=== PATIENT | male | born 1940 | race Caucasian/White ===

== ENCOUNTER 2016-04-24 04:31 | Inpatient (IN) | payer OTHER, BC ==
[~2016-04-24] VITALS: Ht 167.6 cm; Wt 82.3 kg
[~2016-04-24 04:31] MED LIST: ALEN70TA2 PO; CALCTAB20 PO; CHOL100040 PO; LPRI; MULT-506 PO; VITA1TAB4 PO
--- NOTE | 2016-04-24 04:58 | EMERGENCY ROOM VISIT NOTE ---
History Report prepared by Beryl: Pastor Holden Under the Supervision of: Dr. Destini Hernandez M.D. 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 did take a couple asprin tonight History of Present Illness The patient is a 75 year old male who presents to the Emergency Room with complaints of persistent left shoulder pain since last night. The pain radiates up his neck and down the left arm. The pain is rated 8/10 in severity. The patient has not been able to sleep secondary to pain. He denies chest pain, shortness of breath, or back pain. The patient had a total of 4 Aspirin. His believes that the patient might have an infection of the skin over his legs. The patient has a history of prostate cancer and is s/p prostatectomy. He is not a smoker and is not on blood thinners. The patient denies any cardiac history. He denies any personal or family history of blood clots. Source of History: patient Onset: last night Position: shoulder (left) Symptom Intensity: 8/10 Timing: other (persistent) Associated Symptoms: No SOB, No back pain, No chest pain Review of Systems See HPI for pertinent positives & negatives. A total of 10 systems reviewed and were otherwise negative. Past Medical & Surgical Medical Problems: (1) Leukocytosis (2) Prostate cancer (3) Septicemia due to group B Streptococcus Surgical Problems: (1) History of prostatectomy Family History FHx: diabetes FHx: heart disease Social History Smoking Status: Never Smoker Alcohol Use: occasionally Marital Status: Housing Status: lives with significant other Occupation Status: retired Current/Historical Medications Scheduled Alendronate Sodium (Fosamax), 70 MG PO WK Calcium Carbonate-Vitamin D (Calcium 600 + D), 1 TABS PO DAILY Cholecalciferol (Vitamin D-1000), 1,000 UNIT PO DAILY Enzalutamide (Xtandi), 160 MG PO DAILY Leuprolide Acetate (Lupron Depot), Q 3 MONTHS Multivitamin (Multivitamin), 1 TAB PO DAILY Vitamin E (Vitamin E), 400 MG PO DAILY Allergies Coded Allergies: No Known Allergies (Unverified , 04/24/16) Physical Exam Vital Signs Date Time Temp Pulse Resp B/P Pulse Ox O2 Delivery O2 Flow Rate FiO2 04/24/16 07:51 84 04/24/16 07:18 37.0 97 18 117/71 97 Room Air 04/24/16 06:59 96 16 121/73 98 Room Air 04/24/16 06:33 97 16 121/67 98 Room Air 04/24/16 04:50 105 04/24/16 04:34 36.8 114 18 114/71 94 Room Air Physical Exam Vital signs reviewed. General: Well-appearing male, in no significant distress. Warm to touch. HEENT: No scleral icterus, PERRLA, neck supple. Atraumatic. Cardiovascular: Tachycardic, regular rhythm, no extra sounds. Pulmonary: Clear to auscultation bilaterally, normal work of breathing. Abdomen: Soft, nontender, nondistended, positive bowel sounds. Musculoskeletal: Right greater than left proximal lower extremity warmth and erythema. Right lower extremity erythema progresses past the knee and around to the posterior aspect of the leg, no open lesions or drainage. Neurologic: Patient awake alert and oriented x 3, full strength in all 4 extremities. Cranial nerves 2 through 12 grossly intact. Skin: Warm, dry, no rash Medical Decision & Procedures ER Provider Diagnostic Interpretation: X-ray results as stated below per interpretation by me and the radiologist: CHEST ONE VIEW PORTABLE HISTORY: Atypical chest pain COMPARISON: Chest 03/25/2014. FINDINGS: Elevation of the left hemidiaphragm which is new from the prior studies. Associated left basilar linear density consistent with subsegmental atelectasis. The right lung is clear. The heart is normal in size. No pleural effusions. No pneumothorax. IMPRESSION: Interval development of an elevated left hemidiaphragm with left basilar subsegmental atelectasis. Electronically signed by: Óscar Nix M.D. 04/24/2016 7:44 AM Dictated Date/Time: 04/24/2016 7:43 AM Laboratory Results Test 04/24/16 04:45 04/24/16 05:25 04/24/16 06:01 Prothrombin Time 11.7 SECONDS (9.0-12.0) Prothromb Time International Ratio 1.1 (0.9-1.1) Activated Partial Thromboplast Time 29.5 SECONDS (21.0-31.0) Partial Thromboplastin Ratio 1.1 Total Bilirubin 1.1 mg/dl (0.2-1) Direct Bilirubin 0.2 mg/dl (0-0.2) Aspartate Amino Transf (AST/SGOT) 12 U/L (15-37) Alanine Aminotransferase (ALT/SGPT) 17 U/L (12-78) Alkaline Phosphatase 89 U/L (45-117) Total Protein 6.7 gm/dl (6.4-8.2) Albumin 3.5 gm/dl (3.4-5.0) Bedside Troponin I 0.000 ng/ml (0-0.045) Bedside Lactic Acid Venous 2.68 mmol/L (0.90-1.70) Laboratory results per my review. Medications Administered Medications (Trade) Dose Ordered Sig/Rosita Route Start Time Stop Time Status Last Admin Dose Admin Sodium Chloride 500 ml @ 999 mls/hr Q31M STAT IV 04/24/16 05:34 04/24/16 06:04 DC 04/24/16 05:34 999 MLS/HR Sodium Chloride (Nss 1000ml) 1,000 ml @ 200 mls/hr Q5H STAT IV 04/24/16 05:34 04/24/16 10:33 DC 04/24/16 06:38 200 MLS/HR Piperacillin Sod/ Tazobactam Sod 4.5 gm 4.5 gm NOW STAT IV 04/24/16 05:34 04/24/16 05:35 DC 04/24/16 06:39 4.5 GM Vancomycin HCl 2100 mg/Sodium Chloride 542 ml @ 200 mls/hr NOW STAT IV 04/24/16 06:24 04/24/16 09:06 DC 04/24/16 06:59 200 MLS/HR Sodium Chloride (Nss 1000ml) 1,000 ml @ 100 mls/hr Q10H IV 04/24/16 08:00 04/25/16 14:25 DC 04/25/16 12:38 100 MLS/HR Magnesium Sulfate (Magnesium Sulfate) 1 gm STK-MED ONCE .ROUTE 04/24/16 08:11 04/24/16 08:13 DC 04/24/16 08:17 1 GM ECG Indication: chest pain Rate (beats per minute): 107 Rhythm: sinus tachycardia Findings: no acute ischemic change, left axis deviation, no ectopy ED Course 0452: Past medical records reviewed. The patient was evaluated in room B8. A complete history and physical examination was performed. 0500: Nitrostat 0.4 mg SL. 0534: Zosyn 4.5 gm IV, NSS 1000 ml @ 200 mls/hr, NSS 500 ml @ 999 mls/hr. 0624: Vancomycin HCl 2100 mg / NSS 542 ml @ 200 mks/hr. 0700: Dr. Rader, [facility] Hospitalist, is aware of the case. Medical Decision Differential diagnosis: Influenza, other viral illness, pneumonia, urinary tract infection, metabolic abnormality, medication effect, cellulitis, meningitis, intra-abdominal source. This patient was evaluated and appeared to be in some discomfort. IV access was obtained and laboratory work was drawn. Patient was hydrated with normal saline solution. Patient is noted to be tachycardic and has an elevated lactate. White blood cell count is 20,000. Patient's cardiac enzymes are negative. EKG reveals a sinus tachycardia without evidence of acute ischemia. Chest x-ray reveals interval development of an elevated left hemidiaphragm with left basilar subsegmental atelectasis. Patient's physical exam is significant for bilateral lower extremity cellulitis. Blood cultures were sent and the patient was medicated with IV Zosyn and IV vancomycin. The patient's case was discussed with the hospitalist service will evaluate the patient for further management. He expresses understanding and agrees. Impression Primary Impression: SIRS (systemic inflammatory response syndrome) Additional Impression: Cellulitis of both lower extremities Scribe Attestation The scribe's documentation has been prepared under my direction and personally reviewed by me in its entirety. I confirm that the note above accurately reflects all work, treatment, procedures, and medical decision making performed by me. Departure Information Dispostion Being Evaluated By Hospitalist Referrals RV. Castaneda MD (PCP) Patient Instructions My [facility] Problem Qualifiers
[2016-04-24] MEDS ORDERED: NITROGLYCERIN 0.4 MG SL PER TAB CHARGE SL PRN (05:00)
[2016-04-24 05:01] LABS: HEMATOCRIT 45.9 % (42-52); MEAN CELL VOLUME 85.8 fL (80-100); MEAN CORPUSCULAR HEMOGLOBIN 30.8 pg (25-34); MEAN CORPUSCULAR HGB CONC 35.9 g/dl (32-36); MEAN PLATELET VOLUME 10.1 fL (7.4-10.4); PLATELET COUNT 173 K/uL (130-400); RED BLOOD COUNT 5.35 M/uL (4.7-6.1); WHITE BLOOD COUNT 20.05 K/uL (4.8-10.8)
[2016-04-24 05:12] LABS: BUN/CREATININE RATIO 15.3 (10-20); CALCIUM 8.2 mg/dl (8.5-10.1); CREATININE 1.1 mg/dl (0.60-1.40); INR 1.1 (0.9-1.1); MAGNESIUM 1.6 mg/dl (1.8-2.4); PARTIAL THROMBOPLASTIN RATIO 1.1; POTASSIUM 3.7 mmol/L (3.5-5.1); PROTHROMBIN TIME (PATIENT) 11.7 SECONDS (9.0-12.0)
[2016-04-24 05:17] LABS: CKMB/CK RATIO 1.8 (0-3.0)
[2016-04-24 05:27] LABS: BASO % 0.1 %; BASO ABS # 0.02 K/uL (0-0.2); COMPLETE YES; IG% 0.2 %; LYMPH % 4.9 %; LYMPH ABS # 0.99 K/uL (1.2-3.4); MONO % 2.2 %; NEUT % 92.6 %
[2016-04-24] MEDS ORDERED: PIPERACILLIN/TAZOBACTAM 4.5 GM/100ML D5W IV STA (05:34)
[2016-04-24] MEDS ORDERED: SODIUM CHLORIDE 0.9% 1000ML 1,000 ML IV STA (05:34)
[2016-04-24] MEDS ORDERED: VANCOMYCIN INJ 2,100 MG in SODIUM CHLORIDE 0.9% 250ML 250 ML IV STA (05:34)
[2016-04-24] MEDS ORDERED: SODIUM CHLORIDE 0.9% 500ML 500 ML IV STA (05:34)
[2016-04-24] MEDS ORDERED: VANCOMYCIN INJ 2,100 MG in SODIUM CHLORIDE 0.9% 500ML 500 ML IV STA (06:24)
[2016-04-24] MEDS ORDERED: CALC-20 PO (06:36)
[2016-04-24] MEDS ORDERED: ENZA1CAP PO (06:37)
--- NOTE | 2016-04-24 07:45 | DIAGNOSTIC IMAGING REPORT ---
CHEST ONE VIEW PORTABLE HISTORY: Atypical chest pain COMPARISON: Chest 03/25/2014. FINDINGS: Elevation of the left hemidiaphragm which is new from the prior studies. Associated left basilar linear density consistent with subsegmental atelectasis. The right lung is clear. The heart is normal in size. No pleural effusions. No pneumothorax. IMPRESSION: Interval development of an elevated left hemidiaphragm with left basilar subsegmental atelectasis. Electronically signed by: Óscar Nix M.D. 04/24/2016 7:44 AM Dictated Date/Time: 04/24/2016 7:43 AM
[2016-04-24] MEDS ORDERED: MAGNESIUM SULFATE 1GM / D5W 1 GM in PREMIXED IN D5W 100 ML IV STA (07:46)
[2016-04-24] MEDS ORDERED: MAGNESIUM SULFATE 1GM / D5W 1 GM BAG ONE (08:11)
--- NOTE | 2016-04-24 08:12 | History and Physical ---
History & Physical Date & Time of Service: Apr 24, 2016 at 08:08 Chief Complaint: Pain In Shoulder,Chest,Neck Primary Care Physician: RV. Castaneda MD History of Present Illness Source: patient, spouse Mr. Latif is a 75 y/o male with PMHx of Prostate CA S/P Prostatectomy and Lymph Node Removal and Possible Mets and Chronic Lymphedema who presents to the ED complaining of L shoulder pain with radiation to neck and down L arm that started last night. 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 Yesterday he felt fatigued and took a nap on the cough and believes he possible slept funny. However, when he woke up he did not have the L shoulder pain but approx. 1 hour it was a sudden onset of constant aching pain that radiated up to the neck, down the arm, and into the back but did not go into the chest. He initially rated this pain a 8/10 but has improved to 6/10. He reports taking four ASA 81 mg BRICK LAYER for concern of a cardiac event. This pain does not produce numbness/tingling and is reproducible with palpation of the superior aspect of the L shoulder. He does report associated chills and nausea last night. As well, he has developed bilateral lower extremity edema and erythema. He has had 3 episodes in the past but it has been awhile per patient report. He does have lymphedema due to lymph node dissection but reports normally good control with stockings, machine, and massage. He denies pain in the legs or numbness/tingling. He denies CP, SOB, vomiting, abdominal pain, dysuria, constipation/diarrhea. In the ED, Labs significant for WBC of 20.05 and glucose of 201. Lactic acid was 2.68. Cardiac enzymes negative. CXR without evidence of consolidation or failure. Vancomycin and Zosyn were initiated after BCx obtained. He is afebrile. He will be admitted to Med/Surg for SIRS and lower extremity cellulitis. Past Medical/Surgical History Medical Problems: (1) Prostate cancer Status: Chronic Surgical Problems: (1) History of prostatectomy Status: Resolved Family History FHx: diabetes FHx: heart disease Social History Smoking Status: Never Smoker Smokeless Tobacco Use: No Alcohol Use: socially Drug Use: none Marital Status: Occupational Status: retired Immunizations History of Influenza Vaccine: Yes History of Tetanus Vaccine?: Yes History of Pneumococcal: Yes History of Hepatitis B Vaccine: Unknown Allergies Coded Allergies: No Known Allergies (Unverified , 04/24/16) Home Medications Scheduled Alendronate Sodium (Fosamax), 70 MG PO WK Calcium Carbonate-Vitamin D (Calcium 600 + D), 1 TABS PO DAILY Cholecalciferol (Vitamin D-1000), 1,000 UNIT PO DAILY Enzalutamide (Xtandi), 160 MG PO DAILY Leuprolide Acetate (Lupron Depot), Q 3 MONTHS Multivitamin (Multivitamin), 1 TAB PO DAILY Vitamin E (Vitamin E), 400 MG PO DAILY Review of Systems Constitutional: + chills, + fatigue, No fever Eyes: No worsening of vision ENT: No nasal symptoms, No sore throat, No trouble swallowing Respiratory: No cough, No shortness of breath Cardiovascular: No chest pain, No palpitations Abdomen: + nausea, No constipation, No diarrhea, No pain, No vomiting Musculoskeletal: + joint pain (L Shoulder with radiation to neck and back), + swelling (lower extremities bilat (chronic)), No calf pain Genitourinary - Male: No dysuria Neurologic: No numbness/tingling, No weakness Hematologic / Lymphatic: No abnormal bleeding/bruising, No clotting problems Integumentary: + problem reported (lower extremity redness bilat) Physical Exam Vital Signs Date Time Temp Pulse Resp B/P Pulse Ox O2 Delivery O2 Flow Rate FiO2 04/24/16 07:51 84 04/24/16 07:18 37.0 97 18 117/71 97 Room Air 04/24/16 06:59 96 16 121/73 98 Room Air 04/24/16 06:33 97 16 121/67 98 Room Air 04/24/16 04:50 105 04/24/16 04:34 36.8 114 18 114/71 94 Room Air General Appearance: WD/WN, no apparent distress Head: normocephalic, atraumatic Eyes: sclerae normal ENT: hearing grossly normal Neck: supple, no JVD, trachea midline Respiratory/Chest: lungs clear, normal breath sounds, no respiratory distress, no accessory muscle use Cardiovascular: regular rate, rhythm, no gallop, no murmur Abdomen/GI: normal bowel sounds, non tender, soft Back: normal inspection, no CVA tenderness Extremities/Musculoskelatal: no pedal edema, + swelling (trace to 1+ pitting edema of lower extremities bilat), + pertinent finding (bilateral thigh erythema that extends to the upper aspect of calves bilat; spares the knee) Neurologic/Psych: no motor/sensory deficits, alert, oriented x 3 Skin: warm/dry, + pertinent finding (no open wounds) Diagnostics Laboratory Results Results Past 24 Hours Test 04/24/16 04:45 04/24/16 05:25 04/24/16 06:01 04/24/16 07:46 Range/Units White Blood Count 20.05 4.8-10.8 K/uL Red Blood Count 5.35 4.7-6.1 M/uL Hemoglobin 16.5 14.0-18.0 g/dL Hematocrit 45.9 42-52 % Mean Corpuscular Volume 85.8 80-100 fL Mean Corpuscular Hemoglobin 30.8 25-34 pg Mean Corpuscular Hemoglobin Concent 35.9 32-36 g/dl Platelet Count 173 130-400 K/uL Mean Platelet Volume 10.1 7.4-10.4 fL Neutrophils (%) (Auto) 92.6 % Lymphocytes (%) (Auto) 4.9 % Monocytes (%) (Auto) 2.2 % Eosinophils (%) (Auto) 0.0 % Basophils (%) (Auto) 0.1 % Neutrophils # (Auto) 18.56 1.4-6.5 K/uL Lymphocytes # (Auto) 0.99 1.2-3.4 K/uL Monocytes # (Auto) 0.44 0.11-0.59 K/uL Eosinophils # (Auto) 0.00 0-0.5 K/uL Basophils # (Auto) 0.02 0-0.2 K/uL RDW Standard Deviation 43.9 36.4-46.3 fL RDW Coefficient of Variation 14.1 11.5-14.5 % Immature Granulocyte % (Auto) 0.2 % Immature Granulocyte # (Auto) 0.04 0.00-0.02 K/uL Prothrombin Time 11.7 9.0-12.0 SECONDS Prothromb Time International Ratio 1.1 0.9-1.1 Activated Partial Thromboplast Time 29.5 21.0-31.0 SECONDS Partial Thromboplastin Ratio 1.1 Sodium Level 139 136-145 mmol/L Potassium Level 3.7 3.5-5.1 mmol/L Chloride Level 103 98-107 mmol/L Carbon Dioxide Level 22 21-32 mmol/L Anion Gap 14.0 3-11 mmol/L Blood Urea Nitrogen 17 7-18 mg/dl Creatinine 1.10 0.60-1.40 mg/dl Est Creatinine Clear Calc Drug Dose 57.5 ml/min Estimated GFR () 75.2 Estimated GFR (Non- 64.9 BUN/Creatinine Ratio 15.3 10-20 Random Glucose 201 70-99 mg/dl Calcium Level 8.2 8.5-10.1 mg/dl Magnesium Level 1.6 1.8-2.4 mg/dl Total Bilirubin 1.1 0.2-1 mg/dl Direct Bilirubin 0.2 0-0.2 mg/dl Aspartate Amino Transf (AST/SGOT) 12 15-37 U/L Alanine Aminotransferase (ALT/SGPT) 17 12-78 U/L Alkaline Phosphatase 89 45-117 U/L Total Creatine Kinase 34 39-308 U/L Creatine Kinase MB 0.6 0.5-3.6 ng/ml Creatine Kinase MB Ratio 1.8 0-3.0 Total Protein 6.7 6.4-8.2 gm/dl Albumin 3.5 3.4-5.0 gm/dl Bedside Troponin I 0.000 0-0.045 ng/ml Bedside Lactic Acid Venous 2.68 0.90-1.70 mmol/L Microbiology Results 04/24/16 Blood Culture, Received Pending 04/24/16 Blood Culture, Received Pending Diagnostic Radiology CHEST ONE VIEW PORTABLE HISTORY: Atypical chest pain COMPARISON: Chest 03/25/2014. FINDINGS: Elevation of the left hemidiaphragm which is new from the prior studies. Associated left basilar linear density consistent with subsegmental atelectasis. The right lung is clear. The heart is normal in size. No pleural effusions. No pneumothorax. IMPRESSION: Interval development of an elevated left hemidiaphragm with left basilar subsegmental atelectasis. EKG Sinus tachycardia Left axis deviation Abnormal ECG When compared with ECG of 25-MAR-2014 10:30, Vent. rate has increased BY 37 BPM Impression Assessment and Plan Mr. Latif is a 75 y/o male with PMHx of Prostate CA S/P Prostatectomy and Lymph Node Removal and Possible Mets and Chronic Lymphedema who presents to the ED complaining of L shoulder pain with radiation to neck and down L arm that started last night. In the ED, Labs significant for WBC of 20.05 and glucose of 201. Lactic acid was 2.68. Cardiac enzymes negative. CXR without evidence of consolidation or failure. Vancomycin and Zosyn were initiated after BCx obtained. He is afebrile. He will be admitted to Med/Surg for SIRS and lower extremity cellulitis. SIRS with Bilateral Lower Extremity Cellulitis Superimposed on Chronic Lymphedema: - U/S B/L lower extremities and groin - R/O DVT - BCx - pending - NSS at 100 mL/hr - Vancomycin and Zosyn per pharmacy dosing L Shoulder Pain: Likely Musculoskeletal: - Serial cardiac enzymes - R/O atypical presentation - unlikely in setting of reproducible pain - Toradol 15 mg IV Q6H PRN - Lidocaine patch Hypomagnesemia: - Replete with Mag Sulf 1 g x 1 dose - Trend Mag and replete as necessary Hyperglycemia: No H/O Diabetes; Pos FMHx T2DM in Father: - HbA1c and BSG AC and HS - monitor in setting of FMHx and current infection Prostate CA S/P Prostatectomy and Lymph Node Dissection with Possible Mets: - Xtandi 160 mg daily HS - non-formulary and patient may use own medication DVT Prophylaxis: - Heparin 5000 units SC Q12H Code Status: - FULL RESUSCITATION Disposition: - Lives at home and independent Level of Care Med/Surg Advanced Directives Existing Advance Directive: Yes Resuscitation Status FULL RESUSCITATION VTE Prophylaxis VTE Risk Assessment Done? Y/N: Yes Risk Level: Moderate Given or contraindicated: Unfractionated heparin SQ Reviewed: Pt Seen/Exam by Me, RN Notes, HO Notes, Prior Records, Labs, RAD, EKG History I agree with MIKALA Murillo&P with some modifications as below A 75 y/o male with PMHx of Prostate CA S/P Prostatectomy and Lymph Node Removal and Possible Mets and Chronic Lymphedema who presents to the ED complaining of L shoulder pain with radiation to neck and down L arm that started last night. In the ED, Labs significant for WBC of 20.05 and glucose of 201. Lactic acid was 2.68. Cardiac enzymes negative. CXR without evidence of consolidation or failure. Vancomycin and Zosyn were initiated after BCx obtained. He is afebrile. Constitutional: denies: chills Respiratory: negative: cough Cardiovascular: denies chest pain Gastrointestinal/Abdominal: negative: abdominal pain Musculoskeletal: positive: joint pain (left shoulder) Skin: negative: change in color Neurological/Psych: negative: emotional problems Hematologic/Lymphatic: negative: anemia General Appearance: WD/WN, no apparent distress Eye Exam: bilateral eye normal inspection Ears, Nose, Throat: hearing grossly normal Neck: non-tender Respiratory: chest non-tender, normal breath sounds Cardiovascular: normal peripheral pulses Gastrointestinal: normal bowel sounds Extremities: inflammation, swelling (left leg) Neurologic/Psychiatric: alert Skin Characteristics: warm/dry Assessment/Plan A 75 y/o male with PMHx of Prostate CA S/P Prostatectomy and Lymph Node Removal and Possible Mets and Chronic Lymphedema who presents to the ED complaining of L shoulder pain with radiation to neck and down L arm that started last night. In the ED, Labs significant for WBC of 20.05 and glucose of 201. Lactic acid was 2.68. Cardiac enzymes negative. CXR without evidence of consolidation or failure. Vancomycin and Zosyn were initiated after BCx obtained. He is afebrile. He will be admitted to Med/Surg for SIRS and lower extremity cellulitis. Lower Extremity Cellulitis Superimposed on Chronic Lymphedema: check U/S B/L lower extremities and groin, R/O DVT check bl cx results Iv vancomycin and Zosyn per pharmacy dosing Left Shoulder Pain: Likely Musculoskeletal: check Serial cardiac enzymes, R/O atypical cardiac chest pain presentation start Toradol 15 mg IV Q6H PRN start Lidocaine patch Hypomagnesemia: Mag Sulfate 1 g x 1 dose Trend Mag and replete as necessary Hyperglycemia: No H/O Diabetes; Positive FMHx T2DM in Father: check HbA1c and BSG AC and HS - monitor in setting of FMHx and current infection Prostate CA S/P Prostatectomy and Lymph Node Dissection with Possible Mets: cont Xtandi 160 mg daily HS, non-formulary and patient may use own medication DVT Prophylaxis: Heparin 5000 units SC Q12H FULL RESUSCITATION Lives at home and independent, check PT/OT evals case discussed with She Mota time spent 45 min
[2016-04-24] MEDS ORDERED: ALUMINUM/MAGNESIUM/SIMETH (MAALOX MAX) 30 ML UDC PO PRN (08:15)
[2016-04-24] MEDS ORDERED: MAGNESIUM HYDROXIDE SUSP 30 ML UDC PO PRN (08:15)
[2016-04-24] MEDS ORDERED: ONDANSETRON INJ 2 MG/ML 2 ML VIAL IV PRN (08:15)
[2016-04-24] MEDS ORDERED: ACETAMINOPHEN 325 MG TAB PO PRN (08:15)
[2016-04-24] MEDS ORDERED: KETOROLAC TROMETHAMINE 15 MG/ML VIAL IM PRN (08:30)
[2016-04-24] MEDS ORDERED: POLYETHYLENE (MIRALAX) 17 GM PACK PO PRN (08:45)
[2016-04-24 08:56] VITALS: O2SAT 95; Ht 167.6 cm; Wt 82.3 kg
[2016-04-24] MEDS ORDERED: PIPERACILL/TAZOBAC CONSULT ACTIVE PRN (09:00)
[2016-04-24] MEDS ORDERED: VANCOMYCIN CONSULT ACTIVE PRN (09:00)
[2016-04-24 10:26] VITALS: BP 129/74; PULSE 88; TEMP 36.7; O2SAT 96
[2016-04-24] MEDS: LIDODERM (LIDOCAINE) PATCH 5% TD SCH (11:11)
[2016-04-24] MEDS: SODIUM CHLORIDE 0.9% 1000ML 1,000 ML IV SCH ×2 (11:12→19:34)
--- NOTE | 2016-04-24 11:40 | DIAGNOSTIC IMAGING REPORT ---
BILATERAL LOWER EXTREMITY VENOUS DOPPLER HISTORY: Lower extremity pain. COMPARISON STUDY: None. FINDINGS: There is normal compressibility, flow, and augmentation within the bilateral lower extremity deep venous systems. Bilateral external iliac vessels appear patent. Necrotic left inguinal lymph nodes have decreased in size compared to 12/24/2015 CT. The largest measures 2.6 x 2.2 cm. IMPRESSION: No DVT within the right or left lower extremity. Slight decrease in size in the necrotic left inguinal lymph nodes. Electronically signed by: Óscar Nix M.D. 04/24/2016 11:39 AM Dictated Date/Time: 04/24/2016 11:36 AM
[2016-04-24] MEDS: MULTIVITAMIN TAB PO SCH (11:41)
[2016-04-24] MEDS: CALCIUM 600MG + VIT D 400 IU TAB PO SCH (11:41)
[2016-04-24] MEDS: TOCOPHERYL, DL-ALPHA 400 INTER.UNIT CAP PO SCH (11:41)
[2016-04-24] MEDS: HEPARIN SOD 5000 UNIT/0.5 ML CARP SQ SCH ×2 (11:43→20:44)
[2016-04-24] MEDS: PIPERACILL/TAZOBAC IV 3.375 GM in DEXTROSE 5% 100ML 100 ML IV SCH ×2 (12:12→19:34)
[2016-04-24 12:35] LABS: CKMB/CK RATIO 1.8 (0-3.0)
--- NOTE | 2016-04-24 17:39 | Pharmacy Progress Note ---
Pharmacy Antibiotic Consult Date of Service: Apr 24, 2016. Pharmacy Dosing Scope Pharmacy is consulted to initiate vancomycin and Zosyn IV dosing therapy, order appropriate labs and adjust drug dose/frequency. Subjective The patient is a 75 year old male admitted on Apr 24, 2016 at 08:13 with SIRS and bilateral lower extremity cellulitis. Elevated WBC count with right shift. Lactic acid = 2.68. Objective Height (Feet): 5 Height (Inches): 6.00 Weight (Kilograms): 82.300 Lab Results (24hrs): Laboratory Tests Test 04/24/16 04:45 BUN/Creatinine Ratio 15.3 Blood Urea Nitrogen 17 mg/dl Creatinine 1.10 mg/dl White Blood Count 20.05 K/uL Red Blood Count 5.35 M/uL Hemoglobin 16.5 g/dL Hematocrit 45.9 % Mean Corpuscular Volume 85.8 fL Mean Corpuscular Hemoglobin 30.8 pg Mean Corpuscular Hemoglobin Concent 35.9 g/dl Platelet Count 173 K/uL Mean Platelet Volume 10.1 fL Neutrophils (%) (Auto) 92.6 % Lymphocytes (%) (Auto) 4.9 % Monocytes (%) (Auto) 2.2 % Eosinophils (%) (Auto) 0.0 % Basophils (%) (Auto) 0.1 % Neutrophils # (Auto) 18.56 K/uL Lymphocytes # (Auto) 0.99 K/uL Monocytes # (Auto) 0.44 K/uL Eosinophils # (Auto) 0.00 K/uL Basophils # (Auto) 0.02 K/uL Micro Results: Blood cx x 2 are pending. Assessment & Plan Vancomycin for SIRS and bilateral lower extremity cellulitis. * Loading dose: 2100 mg IV X 1 dose (~25mg/kg) then: * 1250 mg IV every 16 hours. * Goal peak level estimate: between 35 - 40 mcg/mL. * Goal trough level estimate: between 15 - 20 mcg/mL. * Peak and trough or random level has been ordered for: 02/23 prior to 0600 dose. Zosyn 4.5gm IV in ER, the 3.375gm IV q8h extended infusion for CrCl > 20ml/min. Pharmacy will continue to follow and will adjust dose/frequency as necessary. Thank you
[2016-04-24 18:04] LABS: CKMB/CK RATIO 2.4 (0-3.0)
[2016-04-24] MEDS ORDERED: VANCOMYCIN INJ 1,250 MG in SODIUM CHLORIDE 0.9% 250ML 250 ML IV SCH (22:00)
[2016-04-24] MEDS: ENZALUTAMIDE 40 MG CAP PO SCH (23:00)
[2016-04-25 00:22] VITALS: BP 115/70; PULSE 83; TEMP 37.2; O2SAT 95
[2016-04-25] MEDS: PIPERACILL/TAZOBAC IV 3.375 GM in DEXTROSE 5% 100ML 100 ML IV SCH ×3 (04:03→19:58)
[2016-04-25] MEDS: SODIUM CHLORIDE 0.9% 1000ML 1,000 ML IV SCH ×2 (04:03→12:38)
[2016-04-25 06:59] LABS: ESTIMATED AVERAGE GLUCOSE 103 mg/dl; HA1C FLAG Normal (Normal)
[2016-04-25 07:56] LABS: BASO % 0.2 %; BASO ABS # 0.02 K/uL (0-0.2); COMPLETE YES; EOS % 0.7 %; IG% 0.2 %; LYMPH % 16.6 %; LYMPH ABS # 1.61 K/uL (1.2-3.4); MEAN CELL VOLUME 87.7 fL (80-100); MEAN CORPUSCULAR HEMOGLOBIN 29.9 pg (25-34); MONO % 3.7 %; NEUT % 78.6 %; PLATELET COUNT 153 K/uL (130-400); RED BLOOD COUNT 4.79 M/uL (4.7-6.1); WHITE BLOOD COUNT 9.68 K/uL (4.8-10.8)
[2016-04-25 07:57] VITALS: BP 111/75; PULSE 89; TEMP 37.3; O2SAT 97
[2016-04-25] MEDS: LIDODERM (LIDOCAINE) PATCH 5% TD SCH (08:09)
[2016-04-25] MEDS: MULTIVITAMIN TAB PO SCH (08:10)
[2016-04-25] MEDS: CALCIUM 600MG + VIT D 400 IU TAB PO SCH (08:10)
[2016-04-25] MEDS: TOCOPHERYL, DL-ALPHA 400 INTER.UNIT CAP PO SCH (08:10)
[2016-04-25] MEDS: HEPARIN SOD 5000 UNIT/0.5 ML CARP SQ SCH ×2 (08:14→20:21)
[2016-04-25 08:17] LABS: BUN/CREATININE RATIO 16.2 (10-20); CALCIUM 7.7 mg/dl (8.5-10.1); CREATININE 0.93 mg/dl (0.60-1.40); MAGNESIUM 2.2 mg/dl (1.8-2.4); POTASSIUM 3.6 mmol/L (3.5-5.1)
[2016-04-25 08:35] VITALS: O2SAT 97
--- NOTE | 2016-04-25 10:31 | Clinical Documentation Query ---
CLINICAL DOCUMENTATION QUERY Dr. JOHNS, In ICD 10 SIRs with an infection does not automatically code to sepis. In your clinical opinion is this patient being managed for: ( ) Sepsis POA ( ) Other explanation of clinical findings (Please Explain) ( ) Unable to determine (Please Define) ( ) Need to Discuss ( ) Not Agree The medical record reflects the following clinical findings, treatment, and risk factors. Clinical Indicators:75 yo male presenting with fatigue and L shoulder pain. Also noted to be "warm to touch" and have warmth and erythema in bilateral LE. Documentation indicates pt with SIRS with bilateral LE cellulitis. Lactic acid 3.3, pt HR 114, prelim blood cx with gram + cocci Treatment: IV fluid boluses then continous, IV zosyn, IV vancomycin, blood cultures, final BC pending Risk Factors: celllulitis Please clarify and document your clinical opinion in the progress notes and discharge summary. Terms such as "probable", "suspected", "likely", "questionable", "possible", or "still to be ruled out" are acceptable. IF IN AGREEMENT, YOU MUST DOCUMENT ABOVE DIAGNOSTIC STATEMENT IN DAILY PROGRESS NOTES AND DISCHARGE SUMMARY. This document is not part of the patient's record. Thank You, Karma Diaz, ARNULFO [phone]
--- NOTE | 2016-04-25 10:34 | Clinical Documentation Query ---
CLINICAL DOCUMENTATION QUERY Ms. SCHMITZ, In ICD 10 SIRs with an infection will not automatically code to sepsis. In your clinical opinion is this patient being managed for: ( x ) Sepsis POA ( ) Other explanation of clinical findings (Please Explain) ( ) Unable to determine (Please Define) ( ) Need to Discuss ( ) Not Agree The medical record reflects the following clinical findings, treatment, and risk factors. Clinical Indicators:75 yo male presenting with fatigue and L shoulder pain. Also noted to be "warm to touch" and have warmth and erythema in bilateral LE. Documentation indicates pt with SIRS with bilateral LE cellulitis. Lactic acid 3.3, pt HR 114, prelim blood cx with gram + cocci Treatment: IV fluid boluses then continous, IV zosyn, IV vancomycin, blood cultures, final BC pending Risk Factors: celllulitis Please clarify and document your clinical opinion in the progress notes and discharge summary. Terms such as "probable", "suspected", "likely", "questionable", "possible", or "still to be ruled out" are acceptable. IF IN AGREEMENT, YOU MUST DOCUMENT ABOVE DIAGNOSTIC STATEMENT IN DAILY PROGRESS NOTES AND DISCHARGE SUMMARY. This document is not part of the patient's record. Thank You, Karma Diaz, RN [phone]
--- NOTE | 2016-04-25 14:30 | Hospitalist Progress Note ---
Hospitalist Progress Note Date of Service Apr 25, 2016. (Bianca Correia, GALLOC) Subjective Pt evaluation today including: conversation w/ patient, physical exam, chart review, lab review, review of inpatient medication list Pain: None PO Intake: Tolerating PO diet Voiding: no voiding problems Patient reports feeling well, denies any complaints. Denies pain in legs or groin and states erythema is much improved. The patient denies fevers, chills, sweats, chest pain, palpitations, claudication, cough, wheezing, shortness of breath, nausea, vomiting, abdominal pain, dysuria, hematuria, urinary retention , paralysis, weakness, numbness and tingling. Additional Comments: See HPI for pertinent positives and negatives. All other systems reviewed and negative. (Bianca Correia, GALLOC) Objective Vital Signs Date Time Temp Pulse Resp B/P Pulse Ox O2 Delivery O2 Flow Rate FiO2 04/25/16 08:35 97 Room Air 04/25/16 08:00 Room Air 04/25/16 07:57 37.3 89 18 111/75 97 Room Air 04/25/16 00:30 Room Air 04/25/16 00:22 37.2 83 16 115/70 95 Room Air 04/24/16 20:20 Room Air 04/24/16 16:00 Room Air (Bianca Correia, MIKALA-C) Physical Exam General Appearance: WD/WN, no apparent distress Eyes: normal inspection, PERRL, EOMI ENT: normal ENT inspection, hearing grossly normal, pharynx normal Neck: supple, no JVD, trachea midline Respiratory/Chest: lungs clear, normal breath sounds, no respiratory distress Cardiovascular: regular rate, rhythm, no gallop, no murmur Abdomen: normal bowel sounds, non tender, soft Extremities: non-tender, normal inspection, + swelling (trace pitting edema in lower extremities distally), + pertinent finding (no erythema in lower extremities) Neurologic/Psychiatric: alert, normal mood/affect, oriented x 3 Skin: normal color, warm/dry, no rash (Bianca Correia, MIKALA-C) Laboratory Results Last 24 Hours Test 04/24/16 16:58 04/24/16 17:05 04/24/16 20:06 04/25/16 07:26 Bedside Glucose 112 mg/dl 100 mg/dl Total Creatine Kinase 37 U/L Creatine Kinase MB 0.9 ng/ml Creatine Kinase MB Ratio 2.4 Troponin I < 0.015 ng/ml White Blood Count 9.68 K/uL Red Blood Count 4.79 M/uL Hemoglobin 14.3 g/dL Hematocrit 42.0 % Mean Corpuscular Volume 87.7 fL Mean Corpuscular Hemoglobin 29.9 pg Mean Corpuscular Hemoglobin Concent 34.0 g/dl Platelet Count 153 K/uL Mean Platelet Volume 10.0 fL Neutrophils (%) (Auto) 78.6 % Lymphocytes (%) (Auto) 16.6 % Monocytes (%) (Auto) 3.7 % Eosinophils (%) (Auto) 0.7 % Basophils (%) (Auto) 0.2 % Neutrophils # (Auto) 7.60 K/uL Lymphocytes # (Auto) 1.61 K/uL Monocytes # (Auto) 0.36 K/uL Eosinophils # (Auto) 0.07 K/uL Basophils # (Auto) 0.02 K/uL RDW Standard Deviation 46.7 fL RDW Coefficient of Variation 14.5 % Immature Granulocyte % (Auto) 0.2 % Immature Granulocyte # (Auto) 0.02 K/uL Sodium Level 138 mmol/L Potassium Level 3.6 mmol/L Chloride Level 105 mmol/L Carbon Dioxide Level 25 mmol/L Anion Gap 8.0 mmol/L Blood Urea Nitrogen 15 mg/dl Creatinine 0.93 mg/dl Est Creatinine Clear Calc Drug Dose 68.0 ml/min Estimated GFR () 92.1 Estimated GFR (Non- 79.5 BUN/Creatinine Ratio 16.2 Random Glucose 97 mg/dl Calcium Level 7.7 mg/dl Magnesium Level 2.2 mg/dl Test 04/25/16 07:33 04/25/16 11:10 Bedside Glucose 85 mg/dl 82 mg/dl (Bianca Correia, IMKALA-C) Assessment and Plan 75 y/o male with a history of prostate cancer s/p prostatectomy and lymph node removal and possible mets, and chronic lymphedema who presents to the ED complaining of left shoulder pain with radiation to neck and down left arm that started 1 day prior to arrival. In the ED, labs significant for WBC of 20.05 and glucose of 201. Lactic acid was 2.68. Cardiac enzymes negative. CXR without evidence of consolidation or failure. Started on vancomycin and Zosyn. Afebrile. Tachycardic upon arrival with HR in 110s. Otherwise VSS. Sepsis POA with bilateral lower extremity cellulitis--h/o chronic lymphedema, several episodes of cellulitis in past -Admit to med/surg -Doppler US negative for DVT bilaterally -Blood cultures positive for Group B Beta Strep x 2 -D/C IVF -D/C vancomycin -Continue Zosyn for now -Consult infectious disease, appreciate recs Left shoulder pain--resolved, likely musculoskeletal -Serial cardiac enzymes - R/O atypical ACS presentation: enzymes negative x 3 -Toradol 15 mg IV Q6H PRN pain -D/C Lidocaine patch Hypomagnesemia--resolved -Replete with magnesium sulfate 1 gm IV x 1 dose -Magnesium 04/25 2.2 Hyperglycemia--no H/O Diabetes; positive FMHx T2DM in Father -HbA1c 5.2 on 04/24 -Check BSGs q ac and qhs. Have been WNL Prostate cancer s/p prostatectomy and lymph node dissection with possible metastasis -Xtandi 160 mg PO qhs - non-formulary and patient may use own medication DVT Prophylaxis -Heparin 5000 units SC Q12H Code Status -Level I, FULL RESUSCITATION STATUS Dispo - Lives at home and independent, plan to return home at d/c (Bianca Correia ., VAL) Reviewed: Pt Seen/Exam by , DELBERT Notes, Labs, RAD (Rashmi Beckman MD) History Physician Cardiologist Supervision Note: I interviewed and examined the patient. Discussed with MIKALA Correia and agree with findings and plan as documented in the note. Any exceptions or clarifications are listed here: Pt doing well, afebrile, legs swollen more than usual, wants to bring in home portable massager for is lymphedema. Growing GBS on BCxs Vitals reviewed NAD RRR no mgr CTAB breathing unlabored Abd soft NT ND Ext: 1-2+ pitting edema legs to thighs L>R, mild blanching erythema on entire legs bilat, no induration or drainage : uncircumcised, continuous leakage of urine 75 yo male with bilateral lower ext cellulitis, chronic lymphedema, with bacteremia, sepsis. Cotninue ZOsyn and await repeat BCxs today. Could go home on po abx for 14 days total, will await final ID recommendations tomorrow -possible dc tomorrow Documented By: Rashmi Beckman (Rashmi Beckman MD)
--- NOTE | 2016-04-25 15:12 | Progress Note ---
Progress Note Date of Service Apr 25, 2016. Progress Note ID Consult Dictated #[id number] A/P: 1. GBS Septicemia 2. Leukocytosis - resolved -Continue abx, hopefully final cultures to return tomorrow and final abx recs made at that time -repeat cultures -will follow, thank you
[2016-04-25 15:19] VITALS: BP 118/78; PULSE 76; TEMP 36.8; O2SAT 96
--- NOTE | 2016-04-25 15:25 | INFECT. DISEASE CONSULTATION ---
DATE OF CONSULTATION: 04/25/2016 REQUESTING PHYSICIAN: Dr. Winston. HISTORY OF PRESENT ILLNESS: This is a 75-year-old gentleman who was admitted from home after he had worsening left shoulder pain and neck pain, which began 1 week prior to admission. He does believe that he slept incorrectly. Because this was on his left side, he was concerned about a cardiac event and presented to the Emergency Room. Since admission, he states that pain has resolved completely. He was noticed to have bilateral lower extremity edema and erythema on admission. He does have a history of lymphedema secondary to prostate cancer and surgery related to this. He states that he does use palms and sees a lymphedema clinic regularly. He denies any wounds on his lower extremities. He states overall his legs are feeling much better today and the swelling persists; however, the erythema has gone completely. He denies any open wounds or cuts to the area of his lower extremities prior to admission. His only complaint is that he is uncircumcised and he occasionally has cracking and bleeding of his foreskin when urinating. He states that this happened continuously; however, he has no urinary complaints. He does follow with urology on a regular basis. As part of his workup in the Emergency Room, blood cultures were obtained and are growing group B strep. Repeat blood cultures have not been done. He was initially given vancomycin and Zosyn and his vancomycin has subsequently been discontinued. He has been afebrile since admission to the hospital with a T-max of 37.3. He currently is out of bed to chair and sitting with his . He states he is feeling significantly better and is asking to be discharged to home. He denies any fevers or chills prior to admission or during this admission. He did have a negative chest x-ray. He had Dopplers of the lower extremity which were unremarkable. He initially had a leukocytosis of 20,000 in the ER; however, that is improved to 9.6 today. He denies any nausea, vomiting, diarrhea at home. He has no abdominal pain. He has no urinary complaints. He is not losing weight. All remaining review of systems are reviewed and are negative except for as noted above. PAST MEDICAL HISTORY: Significant for prostate cancer and subsequent lymphadenopathy. He has a history of prostatectomy. FAMILY HISTORY: Noncontributory. SOCIAL HISTORY: Negative for tobacco use, alcohol use or drug use. He is and lives with his . He denies any sick contacts. ALLERGIES: He has no known drug allergies. CURRENT MEDICATIONS: Include Zosyn, subQ heparin, multivitamins, calcium, vitamin E, MiraLax, Toradol, Tylenol, Maalox, milk of magnesia, and Zofran. PHYSICAL EXAMINATION: VITAL SIGNS: He is afebrile, pulse 89, respiratory rate is 18, blood pressure is 111/75, oxygen saturation is 97% on room air. GENERAL: He is awake, alert and oriented x3; he is in no acute distress. HEENT: Mucous membranes are moist. Extraocular muscles are intact. HEART: Regular. LUNGS: Clear. ABDOMEN: Soft, nontender, nondistended. EXTREMITIES: There is no lower extremity edema bilaterally, right slightly greater than left, but there is no erythema or warmth. There is no tenderness to palpation. There are no open lesions on the skin. LABORATORY STUDIES: CBC today reveals a white blood cell count of 9.6, hemoglobin 14.3, hematocrit 42 and platelets are 153. Chemistry panel reveals a sodium of 138, potassium 3.6, chloride 105, bicarbonate 25, BUN 15, creatinine 0.9, glucose is 97. Cardiac enzymes have been negative. Blood cultures are growing group B strep in 2/2 sets. IMAGING DATA: Chest x-ray and Doppler studies are reviewed above. ASSESSMENT AND PLAN: 1. Group B Streptococcus, most likely source being skin, either lower extremity versus cracked foreskin. He will be continued on Zosyn. Hopefully, his cultures will be finalized tomorrow and additional antibiotic recommendations will be made at that time. He will likely need 14 days. He will be transitioned to oral antibiotics, pending sensitivities. Repeat blood cultures will be obtained today. We did discuss the potential that his cracked foreskin could be a potential source of entry and he can discuss further plans for circumcision with his urologist. Thank you for this consultation.
[2016-04-25] MEDS: ENZALUTAMIDE 40 MG CAP PO SCH (22:49)
[2016-04-25 23:57] VITALS: BP 113/70; PULSE 79; TEMP 37.2; O2SAT 98
[2016-04-26] MEDS: PIPERACILL/TAZOBAC IV 3.375 GM in DEXTROSE 5% 100ML 100 ML IV SCH ×3 (03:46→19:57)
[2016-04-26] MEDS ORDERED: VANCOMYCIN TROUGH SCH (05:30)
[2016-04-26 07:29] LABS: BASO % 0.5 %; BASO ABS # 0.03 K/uL (0-0.2); COMPLETE YES; HEMATOCRIT 39.5 % (42-52); IG% 0.2 %; LYMPH % 23.3 %; LYMPH ABS # 1.45 K/uL (1.2-3.4); MEAN CELL VOLUME 84.8 fL (80-100); MEAN CORPUSCULAR HEMOGLOBIN 29.4 pg (25-34); MEAN CORPUSCULAR HGB CONC 34.7 g/dl (32-36); MEAN PLATELET VOLUME 9.7 fL (7.4-10.4); MONO % 5.6 %; NEUT % 69.4 %; PLATELET COUNT 141 K/uL (130-400); RED BLOOD COUNT 4.66 M/uL (4.7-6.1); WHITE BLOOD COUNT 6.23 K/uL (4.8-10.8)
[2016-04-26] MEDS: TOCOPHERYL, DL-ALPHA 400 INTER.UNIT CAP PO SCH (07:55)
[2016-04-26] MEDS: MULTIVITAMIN TAB PO SCH (07:55)
[2016-04-26] MEDS: CALCIUM 600MG + VIT D 400 IU TAB PO SCH (07:55)
[2016-04-26] MEDS: HEPARIN SOD 5000 UNIT/0.5 ML CARP SQ SCH ×2 (08:02→20:52)
[2016-04-26 08:12] LABS: BUN/CREATININE RATIO 15.3 (10-20); CALCIUM 7.6 mg/dl (8.5-10.1); CREATININE 0.91 mg/dl (0.60-1.40); MAGNESIUM 2.3 mg/dl (1.8-2.4); POTASSIUM 3.5 mmol/L (3.5-5.1)
--- NOTE | 2016-04-26 14:11 | Progress Note ---
Subjective Date of Service: Apr 26, 2016. Subjective initial blood cultures with gbs. sensitivities final. repeat blood cultures pending. afebrile overnight, tolerating abx. wbc nml today, much improved. no overnight events. Problem List Medical Problems: (1) Cellulitis Status: Acute (2) SIRS (systemic inflammatory response syndrome) Status: Acute Objective Vital Signs Date Time Temp Pulse Resp B/P Pulse Ox O2 Delivery O2 Flow Rate FiO2 04/26/16 08:00 Room Air 04/26/16 00:15 Room Air 04/25/16 23:57 37.2 79 16 113/70 98 Room Air 04/25/16 20:15 Room Air 04/25/16 16:00 Room Air 04/25/16 15:19 36.8 76 22 118/78 96 Room Air Laboratory Results Last 24 Hours Test 04/25/16 16:20 04/25/16 20:02 04/26/16 07:08 04/26/16 07:18 Bedside Glucose 98 mg/dl 99 mg/dl 95 mg/dl White Blood Count 6.23 K/uL Red Blood Count 4.66 M/uL Hemoglobin 13.7 g/dL Hematocrit 39.5 % Mean Corpuscular Volume 84.8 fL Mean Corpuscular Hemoglobin 29.4 pg Mean Corpuscular Hemoglobin Concent 34.7 g/dl Platelet Count 141 K/uL Mean Platelet Volume 9.7 fL Neutrophils (%) (Auto) 69.4 % Lymphocytes (%) (Auto) 23.3 % Monocytes (%) (Auto) 5.6 % Eosinophils (%) (Auto) 1.0 % Basophils (%) (Auto) 0.5 % Neutrophils # (Auto) 4.33 K/uL Lymphocytes # (Auto) 1.45 K/uL Monocytes # (Auto) 0.35 K/uL Eosinophils # (Auto) 0.06 K/uL Basophils # (Auto) 0.03 K/uL RDW Standard Deviation 43.8 fL RDW Coefficient of Variation 14.2 % Immature Granulocyte % (Auto) 0.2 % Immature Granulocyte # (Auto) 0.01 K/uL Sodium Level 140 mmol/L Potassium Level 3.5 mmol/L Chloride Level 108 mmol/L Carbon Dioxide Level 22 mmol/L Anion Gap 10.0 mmol/L Blood Urea Nitrogen 14 mg/dl Creatinine 0.91 mg/dl Est Creatinine Clear Calc Drug Dose 69.5 ml/min Estimated GFR () 94.5 Estimated GFR (Non- 81.6 BUN/Creatinine Ratio 15.3 Random Glucose 98 mg/dl Calcium Level 7.6 mg/dl Magnesium Level 2.3 mg/dl Test 04/26/16 11:16 Bedside Glucose 104 mg/dl Assessment and Plan (1) Septicemia due to group B Streptococcus Assessment & Plan: source le vs foreskin. le much improved after starting IV abx. repeat blood cultures negative. will need minimum 14 days of abx, if pt to be d/c can change to po augmentin 875mg po bid with food to complete course. will need continued management of lymphedema as outpt. will need urologyfollow up as well (2) Leukocytosis
[2016-04-26 15:02] VITALS: BP 117/74; PULSE 80; TEMP 36.7; O2SAT 94
--- NOTE | 2016-04-26 15:40 | Hospitalist Progress Note ---
Hospitalist Progress Note Date of Service Apr 26, 2016. (Bianca Correia ., GALLOC) Subjective Pt evaluation today including: conversation w/ patient, physical exam, chart review, lab review, review of inpatient medication list PO Intake: Tolerating PO diet Voiding: no voiding problems Patient reports feeling well. He denies any pain, numbness or tingling in his lower extremities. He is eating and sleeping well. He does still report some erythema and edema in lower extremities but improved from arrival. The patient denies fevers, chills, sweats, chest pain, palpitations, claudication, cough, wheezing, shortness of breath, nausea, vomiting, abdominal pain, dysuria, hematuria, urinary retention, paralysis, weakness, numbness and tingling. Additional Comments: See HPI for pertinent positives and negatives. All other systems reviewed and negative. (Bianca Correia ., MIKALA-C) Objective Vital Signs Date Time Temp Pulse Resp B/P Pulse Ox O2 Delivery O2 Flow Rate FiO2 04/26/16 15:02 36.7 80 20 117/74 94 Room Air 04/26/16 08:00 Room Air 04/26/16 00:15 Room Air 04/25/16 23:57 37.2 79 16 113/70 98 Room Air 04/25/16 20:15 Room Air 04/25/16 16:00 Room Air (Bianca Correia, MIKALA-C) Physical Exam General Appearance: WD/WN, no apparent distress Eyes: normal inspection, PERRL, EOMI ENT: normal ENT inspection, hearing grossly normal, pharynx normal Neck: supple, no JVD, trachea midline Respiratory/Chest: lungs clear, normal breath sounds, no respiratory distress Cardiovascular: regular rate, rhythm, no gallop, no murmur Abdomen: normal bowel sounds, non tender, soft Extremities: non-tender, + swelling (2+ pitting edema RLE, 1+ pitting edema LLE ), + pertinent finding (erythema and warmth throughout RLE and in left thigh. Left lower leg does not appear erythematous and is not warm to the touch compared to right side) Neurologic/Psychiatric: alert, normal mood/affect, oriented x 3 Skin: normal color, warm/dry, no rash, + pertinent finding (erythema and warm as above) (Bianca Correia .GALLOC) Laboratory Results Last 24 Hours Test 04/25/16 16:20 04/25/16 20:02 04/26/16 07:08 04/26/16 07:18 Bedside Glucose 98 mg/dl 99 mg/dl 95 mg/dl White Blood Count 6.23 K/uL Red Blood Count 4.66 M/uL Hemoglobin 13.7 g/dL Hematocrit 39.5 % Mean Corpuscular Volume 84.8 fL Mean Corpuscular Hemoglobin 29.4 pg Mean Corpuscular Hemoglobin Concent 34.7 g/dl Platelet Count 141 K/uL Mean Platelet Volume 9.7 fL Neutrophils (%) (Auto) 69.4 % Lymphocytes (%) (Auto) 23.3 % Monocytes (%) (Auto) 5.6 % Eosinophils (%) (Auto) 1.0 % Basophils (%) (Auto) 0.5 % Neutrophils # (Auto) 4.33 K/uL Lymphocytes # (Auto) 1.45 K/uL Monocytes # (Auto) 0.35 K/uL Eosinophils # (Auto) 0.06 K/uL Basophils # (Auto) 0.03 K/uL RDW Standard Deviation 43.8 fL RDW Coefficient of Variation 14.2 % Immature Granulocyte % (Auto) 0.2 % Immature Granulocyte # (Auto) 0.01 K/uL Sodium Level 140 mmol/L Potassium Level 3.5 mmol/L Chloride Level 108 mmol/L Carbon Dioxide Level 22 mmol/L Anion Gap 10.0 mmol/L Blood Urea Nitrogen 14 mg/dl Creatinine 0.91 mg/dl Est Creatinine Clear Calc Drug Dose 69.5 ml/min Estimated GFR () 94.5 Estimated GFR (Non- 81.6 BUN/Creatinine Ratio 15.3 Random Glucose 98 mg/dl Calcium Level 7.6 mg/dl Magnesium Level 2.3 mg/dl Test 04/26/16 11:16 Bedside Glucose 104 mg/dl (Bianca Correia, VAL) Assessment and Plan 75 y/o male with a history of prostate cancer s/p prostatectomy and lymph node removal and possible mets, and chronic lymphedema who presents to the ED complaining of left shoulder pain with radiation to neck and down left arm that started 1 day prior to arrival. In the ED, labs significant for WBC of 20.05 and glucose of 201. Lactic acid was 2.68. Cardiac enzymes negative. CXR without evidence of consolidation or failure. Started on vancomycin and Zosyn. Afebrile. Tachycardic upon arrival with HR in 110s. Otherwise VSS. Sepsis POA with bilateral lower extremity cellulitis--h/o chronic lymphedema, several episodes of cellulitis in past -Admit to med/surg -Doppler US negative for DVT bilaterally -Blood cultures positive for Group B Beta Strep x 2 -D/C IVF -D/C vancomycin -Continue Zosyn for now -Consult infectious disease, appreciate recs: repeat blood cultures, if negative can switch to Augmentin 875 mg PO BID x 14 days -Repeat blood cultures pending Left shoulder pain--resolved, likely musculoskeletal -Serial cardiac enzymes - R/O atypical ACS presentation: enzymes negative x 3 -Toradol 15 mg IV Q6H PRN pain -D/C Lidocaine patch Hypomagnesemia--resolved -Replete with magnesium sulfate 1 gm IV x 1 dose -Magnesium 04/25 2.2 Hyperglycemia--no H/O Diabetes; positive FMHx T2DM in Father -HbA1c 5.2 on 04/24 -Check BSGs q ac and qhs. Have been WNL Prostate cancer s/p prostatectomy and lymph node dissection with possible metastasis -Xtandi 160 mg PO qhs - non-formulary and patient may use own medication DVT Prophylaxis -Heparin 5000 units SC Q12H Code Status -Level I, FULL RESUSCITATION STATUS Dispo - Lives at home and independent, plan to return home at d/c -Medically stable for discharge when blood cultures are negative as he will switch to PO abx then (Bianca Correia, VAL) Reviewed: Pt Seen/Exam by DELBERT Raya Notes, Labs (Rashmi Beckman MD) History Physician Mixed Livestock Farm Worker Supervision Note: I interviewed and examined the patient. Discussed with MIKALA Correia and agree with findings and plan as documented in the note. Any exceptions or clarifications are listed here: Pt doing well, afebrile, legs swollen but has been on feet or sitting all day, Growing GBS on BCxs but repeat BCx NGTD Vitals reviewed NAD RRR no mgr CTAB breathing unlabored Abd soft NT ND Ext: 1-2+ pitting edema legs to thighs L>R, mild blanching erythema on entire legs bilat, no induration or drainage 75 yo male with bilateral lower ext cellulitis, chronic lymphedema, with GBS bacteremia, sepsis. Cotninue ZOsyn and await repeat BCxs--> if no growth by tomorrow, dc on po abx for 14 days total Augmentin -possible dc tomorrow Documented By: Rashmi Beckman (Rashmi Beckman MD)
[2016-04-26] MEDS: ENZALUTAMIDE 40 MG CAP PO SCH (22:44)
[2016-04-26 23:18] VITALS: BP 121/75; PULSE 79; TEMP 36.9; O2SAT 96
[2016-04-27] MEDS: PIPERACILL/TAZOBAC IV 3.375 GM in DEXTROSE 5% 100ML 100 ML IV SCH ×2 (04:08→12:00)
[2016-04-27 08:00] VITALS: O2SAT 96
[2016-04-27] MEDS: CALCIUM 600MG + VIT D 400 IU TAB PO SCH (08:07)
[2016-04-27] MEDS: TOCOPHERYL, DL-ALPHA 400 INTER.UNIT CAP PO SCH (08:07)
[2016-04-27] MEDS: MULTIVITAMIN TAB PO SCH (08:07)
[2016-04-27 08:10] VITALS: BP 130/74; PULSE 71; TEMP 36.6; O2SAT 96
[2016-04-27] MEDS: HEPARIN SOD 5000 UNIT/0.5 ML CARP SQ SCH (08:15)
[2016-04-27 08:27] LABS: BASO % 0.5 %; BASO ABS # 0.03 K/uL (0-0.2); COMPLETE YES; EOS % 2.1 %; HEMATOCRIT 41.7 % (42-52); IG% 0.2 %; LYMPH % 31.3 %; LYMPH ABS # 1.97 K/uL (1.2-3.4); MEAN CELL VOLUME 84.6 fL (80-100); MEAN CORPUSCULAR HGB CONC 35.5 g/dl (32-36); MEAN PLATELET VOLUME 9.5 fL (7.4-10.4); MONO % 3.3 %; NEUT % 62.6 %; PLATELET COUNT 192 K/uL (130-400); RED BLOOD COUNT 4.93 M/uL (4.7-6.1)
[2016-04-27 08:58] LABS: BUN/CREATININE RATIO 16.1 (10-20); CALCIUM 8.5 mg/dl (8.5-10.1); CREATININE 0.88 mg/dl (0.60-1.40); MAGNESIUM 2.4 mg/dl (1.8-2.4); POTASSIUM 3.6 mmol/L (3.5-5.1)
[2016-04-27 10:25] VITALS: O2SAT 96
[2016-04-27] MEDS ORDERED: AMOX875T PO (10:44)
--- NOTE | 2016-04-27 11:03 | Discharge Instructions ---
Discharge Instructions Admission Reason for Admission: Cellulitis, Sirs (Systemic Inflammatory Response (Bianca Correia PA-C) Discharge Discharge Diagnosis / Problem: Cellulitis, Sepsis, Bacteremia (Bianca Correia PA-C) Discharge Goals Goal(s): Decrease discomfort, Improve function, Diagnostic testing, Therapeutic intervention (Bianca Correia PA-C) Activity Recommendations Activity Limitations: resume your previous activity . (Bianca Correia PA-C) Instructions / Follow-Up Instructions / Follow-Up You were admitted to the hospital with cellulitis of both lower extremities. You did meet sepsis criteria upon admission with an elevated heart rate, elevated white blood cell count, and source of infection. Cultures were taken to check for infection in the blood, which were positive for Group B beta streptococcus. You initially received IV antibiotics, which did help to improve the redness and swelling, and your white blood cell count and vital signs returned to normal limits. Repeat blood cultures were taken which were negative, and you are now stable for discharge to home. Upon admission you had also complained of left shoulder pain that radiated to the neck and down the left arm, which was concerning for a cardiac event. Cardiac work up came back normal, and the pain did completely resolve. The pain was likely musculoskeletal in nature. Recommendations: *Continue to elevate your extremities and massage them periodically. Please continue to follow up routinely for your chronic lymphedema. Medications: *You will need to continue antibiotics at home to ensure the resolution of your infection. Please take Augmentin 875 mg by mouth twice a day with meals for the next 14 days. This has been sent to your pharmacy electronically. You may also take a probiotic to help prevent GI upset such as nausea and diarrhea. *You may resume all of your home medications as before. Follow up: *A referral has been placed for you to follow up with Dr. Castaneda in 1-2 weeks regarding your hospital stay. *Please continue your routine follow up for your chronic lymphedema as well as routine urology follow up for your prostate cancer. Please seek medical attention if you experience fevers, chills, sweats, lightheadedness, loss of consciousness, chest pain, shortness of breath, nausea , vomiting, numbness or tingling, worsening redness or swelling in your lower extremities. (Bianca Correia PA-C) Instructions / Follow-Up Discuss possible circumcision with your Urologist due to chronically cracked foreskin which may have contributed to your blood stream infection. (Rashmi Beckman MD) Current Hospital Diet Patient's current hospital diet: Regular Diet (Bianca Correia PA-C) Discharge Diet Recommended Diet: Regular Diet (Bianca Correia PA-C) Pending Studies Studies pending at discharge: no (Bianca Correia PA-C) Laboratory Results Hemoglobin A1c Test 04/24/16 11:55 Range/Units Estimated Average Glucose 103 mg/dl Hemoglobin A1c 5.2 4.5-5.6 % (Bianca Correia PA-C) Medical Emergencies . Who to Call and When: Medical Emergencies: If at any time you feel your situation is an emergency, please call 911 immediately. . (Bianca Correia PA-C) Non-Emergent Contact Non-Emergency issues call your: Primary Care Provider Call Non-Emergent contact if: you have a fever, you have any medication questions . (Bianca Correia PA-C) Past History Medical & Surgical History: (1) Cellulitis of both lower extremities (2) Septicemia due to group B Streptococcus (3) Prostate cancer (Bianca Correia PA-C) . "Provider Documentation" section prepared by Bianca Correia. (Bianca Correia PA-C) VTE Core Measure Inpt VTE Proph given/why not?: Unfractionated heparin SQ (Bianca Correia PA-C)
[2016-04-27 11:37] VITALS: BP 130/74; PULSE 71; TEMP 36.6; O2SAT 96
--- NOTE | 2016-04-27 12:45 | Discharge Summary ---
Discharge Summary Date of Service Apr 27, 2016. (Bianca Crabtree PA-C) Discharge Summary Admission Date: Apr 24, 2016 at 08:13 Discharge Date: Apr 27, 2016 Discharge Disposition: Home Principal Diagnosis: Cellulitis of lower extremities Immunizations: Have You Had Influenza Vaccine: Yes History of Tetanus Vaccine?: Yes History of Pneumococcal: Yes History of Hepatitis B Vaccine: Unknown (Bianca Crabtree PA-C) Medication Reconciliation New Medications: Amoxicillin & Pot Clavulanate (Augmentin 875-125 mg) 1 Tab Tab 1 TAB PO BID for 14 Days, #28 TAB Take 1 tablet by mouth twice a day with food for 14 days. Continued Medications: Alendronate Sodium (Fosamax) 70 Mg Tab 70 MG PO WK TAKE ON WEDNESDAYS Calcium Carbonate-Vitamin D (Calcium 600 + D) 1 Tab Tab 1 TABS PO DAILY Cholecalciferol (Vitamin D-1000) 1,000 Unit Tab 1000 UNIT PO DAILY Enzalutamide (Xtandi) 40 Mg Cap 160 MG PO DAILY 4 CAPSULE DOSE Leuprolide Acetate (Lupron Depot) 22.5 Mg Kit Q 3 MONTHS Multivitamin (Multivitamin) Tab 1 TAB PO DAILY, 0 Refills Vitamin E (Vitamin E) 400 Unit Tab 400 MG PO DAILY Referrals At Discharge Follow up Referrals: Physician Referral - Within 1-2 Weeks with RV. Castaneda MD Discharge Exam Patient reports feeling well. He states that the erythema and edema in his legs has improved. He does report some loose stools. He denies any other new complaints. His left shoulder has remained free of pain. The patient denies fevers, chills, sweats, chest pain, palpitations, claudication, cough, wheezing , shortness of breath, nausea, vomiting, abdominal pain, dysuria, hematuria, urinary retention, paralysis, weakness, numbness and tingling. Review of Systems: Constitutional: No chills, No fever, No sweats Eyes: No diplopia, No eye pain, No worsening of vision ENT: No hearing loss, No sore throat, No trouble swallowing Respiratory: No cough, No shortness of breath, No wheezing Cardiovascular: No chest pain, No claudication, No palpitations Abdomen: + diarrhea, No nausea, No pain, No vomiting Musculoskeletal: + swelling (edema in lower extremities bilaterally, improved), No calf pain, No joint pain, No muscle pain Genitourinary - Male: No dysuria, No hematuria, No urinary retention Neurologic: No numbness/tingling, No paralysis, No weakness Integumentary: + color change (erythema in lower extremities bilaterally, improved), No itch, No rash Physical Exam: General Appearance: WD/WN, no apparent distress Eyes: normal inspection, PERRL, EOMI ENT: normal ENT inspection, hearing grossly normal, pharynx normal Neck: supple, no JVD, trachea midline Respiratory/Chest: lungs clear, normal breath sounds, no respiratory distress Cardiovascular: regular rate, rhythm, no gallop, no murmur Abdomen / GI: normal bowel sounds, non tender, soft Extremities: no calf tenderness, no pedal edema, + swelling (1+ pitting edema in extremities bilaterally), + pertinent finding (erythema in lower extremities improved, worse in thighs compared to lower legs) Neurologic/Psychiatric: alert, normal mood/affect, oriented x 3 Skin: normal color, warm/dry, no rash, + pertinent finding (erythema in lower extremities) (Bianca Crabtree ., PA-C) Hospital Course 75 y/o male with a history of prostate cancer s/p prostatectomy and lymph node removal and possible mets, and chronic lymphedema who presents to the ED complaining of left shoulder pain with radiation to neck and down left arm that started 1 day prior to arrival. Also with bilateral lower extremity erythem and erythema. H/o chronic lymphedema and several cellulitis infections in the past. In the ED, labs significant for WBC of 20.05 and glucose of 201. Lactic acid was 2.68. Cardiac enzymes negative. CXR without evidence of consolidation or failure. Started on vancomycin and Zosyn. Afebrile. Tachycardic upon arrival with HR in 110s. Otherwise VSS. Sepsis POA with bilateral lower extremity cellulitis--h/o chronic lymphedema, several episodes of cellulitis in past -Admit to med/surg -Doppler US negative for DVT bilaterally -Blood cultures positive for Group B Beta Strep x 2 -Repeat blood cultures from 04/25 no growth to date x 2 -D/C IVF -D/C vancomycin -IV Zosyn -Consult infectious disease, appreciate recs: repeat blood cultures, if negative can switch to Augmentin 875 mg PO BID x 14 days -Pt medically stable for discharge, given script for Augmentin 875 mg PO BID with meals x 14 days. May take with probiotic Left shoulder pain--resolved, likely musculoskeletal -Serial cardiac enzymes - R/O atypical ACS presentation: enzymes negative x 3 -Toradol 15 mg IV Q6H PRN pain -D/C Lidocaine patch Hypomagnesemia--resolved -Replete with magnesium sulfate 1 gm IV x 1 dose -Magnesium 04/25 2.2 Hyperglycemia--no H/O Diabetes; positive FMHx T2DM in Father -HbA1c 5.2 on 04/24 -Check BSGs q ac and qhs. Have been WNL Prostate cancer s/p prostatectomy and lymph node dissection with possible metastasis -Xtandi 160 mg PO qhs - non-formulary and patient may use own medication DVT Prophylaxis -Heparin 5000 units SC Q12H Code Status -Level I, FULL RESUSCITATION STATUS Dispo - Lives at home and independent, plan to return home at d/c -Medically stable for discharge as repeat blood cultures negative. D/C with PO Augmentin as above -F/u with PCP in 1-2 weeks Total Time Spent: Greater than 30 minutes This includes examination of the patient, discharge planning, medication reconciliation, and communication with other providers. (Bianca Crabtree ., VAL) Discharge Instructions Please refer to the electronic Patient Visit Report (Discharge Instructions) for additional information. (Bianca Crabtree .VAL) Additional Copies To RV. Castaneda MD; Jones Saldivar M.D. Reviewed: Pt Seen/Exam by Me (Rashmi Beckman MD) History Physician Industrial Maintenance Manager Supervision Note: I interviewed and examined the patient. Discussed with MIKALA Crabtree and agree with findings and plan as documented in the note. Any exceptions or clarifications are listed here: Pt doing well, afebrile, legs improved from yesterday, no more erythema and less swelling since using compression stockings, Growing GBS on BCxs but repeat BCx NGTD Vitals reviewed NAD RRR no mgr CTAB breathing unlabored Abd soft NT ND Ext: 1+ pitting edema legs to thighs L>R, no erythema, no inguinal NAHID 75 yo male with bilateral lower ext cellulitis, chronic lymphedema, with GBS bacteremia, sepsis. Repeat BCxs with no growth at 48 hr andrew, dc on po abx for 14 days total Augmentin Documented By: Rashmi Beckman (Rashmi Beckman MD)
[2016-11-19] MEDS ORDERED: NYSP EXT (08:47)
[2016-11-19] MEDS ORDERED: CEPH-571 PO (08:47)
== END 2016-04-27 12:42 | disposition home or self-care (01) | DRG 872 ==
LOC: ENRESERVTM → ENRESERVDT → C.EDB 04:32 → C.MS2W 08:13
PROVIDERS: ADMIT Hospitalist; ATTEND Hospitalist
DX: A40.1 Sepsis due to streptococcus, group B (principal); L03.115 Cellulitis of right lower limb; L03.116 Cellulitis of left lower limb; I89.0 Lymphedema, not elsewhere classified; M25.512 Pain in left shoulder; E83.42 Hypomagnesemia; R73.9 Hyperglycemia, unspecified; Z85.46 Personal history of malignant neoplasm of prostate; Z83.3 Family history of diabetes mellitus; Z82.49 Family history of ischemic heart disease and other diseases of the circulatory system

== ENCOUNTER → 2016-09-28 | Outpatient (CLI) | payer OTHER, BC ==
[~2016-09-28] MED LIST changes: +CALC-20 PO; -CALCTAB20 PO; +CEPH-571 PO; +DXM/4 PO; +ENZA1CAP PO; +NYSP EXT; +ONDA-63 PO
--- NOTE | 2016-09-28 12:28 | DIAGNOSTIC IMAGING REPORT ---
LEFT NECK ULTRASONOGRAPHY CLINICAL HISTORY: Left neck mass COMPARISON STUDY: No previous studies for comparison. FINDINGS: There is a solid circumscribed hypoechoic mass within the left lateral neck lateral to the internal jugular vein. This demonstrates internal vascularity. The mass measures 29 x 23 x 21 mm. Fine-needle aspiration biopsy is recommended. IMPRESSION: Corresponding to the patient's palpable abnormality is a solid hypoechoic 29 x 23 x 21 mm mass. Fine-needle aspiration biopsy is recommended in follow-up. Electronically signed by: Jayro Gaston M.D. 09/28/2016 12:27 PM Dictated Date/Time: 09/28/2016 12:25 PM
== END | disposition home or self-care (01) ==
LOC: C.ULTR 12:00
PROVIDERS: ATTEND Internal Medicine
DX: C61 Malignant neoplasm of prostate (principal); R22.1 Localized swelling, mass and lump, neck

== ENCOUNTER → 2016-10-05 | Outpatient (CLI) | payer OTHER, BC ==
--- NOTE | 2016-10-05 11:21 | Discharge Instructions ---
Discharge Instructions Procedure Procedure Date: Oct 05, 2016. Reason for visit: L Side Neck Lump. Discharge Discharge Date: Oct 05, 2016. Discharge Diagnosis: s/p FNA of left level 5 neck mass Instructions Activity Recommendations: No limitations Return to School/Work: no limitations Recommended Home Diet: No Limitations Provider Instructions: ACTIVITY RECOMMENDATIONS: * Rest today. * Resume regular activity in one day. MEDICATIONS: * May take Tylenol or Ibuprofen as needed for pain. DIET: * Resume previous diet. SPECIAL CARE INSTRUCTIONS: Call your doctor if: * Temperature above 101 degrees F. * Pain not relieved by pain medicine ordered. * Increased drainage or redness from incision. * Notify your doctor with any questions or concerns. Call your doctor or go to the nearest Emergency Department if you experience: * Increased chest pain or shortness of breath. FOLLOW UP VISIT: Follow-up with Referring Physician as scheduled. Allergies Coded Allergies: No Known Allergies (Unverified , 04/24/16) Devyn Lehman Recommendations: Call your doctor if: * Temperature above 101 degrees * Pain not relieved by pain medicine ordered * There is increased drainage or redness from any incision * You have any unanswered questions or concerns. Your Doctors Instructions noted above were prepared by provider Rodo Vuong. Patient Signature Section: Patient Instructions Signature Page Harinder Latif Patient (or Guardian) Signature/Date: I have read and understand the instructions given to me by my caregivers. Caregiver/RN/Doctor Signature/Date: The above-named patient and/or guardian has received patient instructions on this date. + Original Patient Signature Page (only) stays with chart. Please make copy for patient.
--- NOTE | 2016-10-05 11:59 | DIAGNOSTIC IMAGING REPORT ---
ULTRASOUND GUIDED FINE NEEDLE ASPIRATION OF LEFT LEVEL 5 MASS CLINICAL HISTORY: Palpable neck mass. COMPARISON STUDY: Neck ultrasound September 28, 2016. PROCEDURE: The procedure, risks and benefits were discussed with the patient. The patient agreed to the procedure and informed written consent was obtained. The procedure was performed by Dr. Vuong following a timeout. Sonography of the neck again demonstrated the palpable 2.9 cm hypoechoic left level 5 mass suggestive of a pathologic lymph node. Skin was prepped and draped in sterile fashion and local anesthesia was achieved with 1% lidocaine. Under direct ultrasound guidance, 1 25-gauge fine needle aspiration was performed followed by 2 22-gauge fine needle aspirations. Abnormal epithelial cells were noted on preliminary pathology. Samples were deemed preliminarily adequate. Patient tolerated the procedure well and no immediate complications were evident. IMPRESSION: Ultrasound guided fine needle aspiration of a left level 5 mass suggestive of a pathologic lymph node. Electronically signed by: Rodo Vuong M.D. 10/05/2016 11:58 AM Dictated Date/Time: 10/05/2016 11:56 AM
== END | disposition home or self-care (01) ==
LOC: C.ULTR 10:33
PROVIDERS: ATTEND Internal Medicine
DX: C77.0 Secondary and unspecified malignant neoplasm of lymph nodes of head, face and neck (principal)

== ENCOUNTER 2016-11-16 19:00 | Inpatient (IN) | payer OTHER, BC ==
[~2016-11-16] VITALS: Ht 167.6 cm; Wt 79.9 kg
[~2016-11-16 19:00] MED LIST changes: -CEPH-571 PO; -DXM/4 PO; -NYSP EXT; -ONDA-63 PO
[2016-11-16] MEDS ORDERED: SODIUM CHLORIDE 0.9% 1000ML 1,000 ML IV ONE (20:15)
--- NOTE | 2016-11-16 20:19 | EMERGENCY ROOM VISIT NOTE ---
History Report prepared by Beryl: Tasia Gordon Under the Supervision of: Dr. Joaquín Montejo M.D. First contact with patient: 19:55 Chief Complaint: FEVER Stated Complaint: FEVER 101.7, BURNING History of Present Illness The patient is a 76 year old white male with a past medical history of prostate cancer, lymph node cancer, left leg cellulitis who presents to the ED with a cc of persistent fever as high as 101.7 beginning today. He has taken Tylenol which seemed to improve his fever. Positive dysuria, loose BM, left leg warmth. Negative cough, testicular pain. He has been eating and drinking normally. He had chemotherapy last . Source of History: patient, spouse/significant other Onset: today Position: other (global) Symptom Intensity: 101.7 Quality: other (fever) Timing: other (persistent) Modifying Factors (Relieving): tylenol Associated Symptoms: + urinary symptoms, No cough Note: Pt reports loose BM, left leg warmth. Pt denies testicular pain. Review of Systems See HPI for pertinent positives and negatives. A total of ten systems were reviewed and were otherwise negative. Past Medical & Surgical Medical Problems: (1) Leukocytosis (2) Neutropenia (3) Prostate cancer (4) Septicemia due to group B Streptococcus (5) Urinary tract infection Surgical Problems: (1) History of prostatectomy Family History FHx: diabetes FHx: heart disease Social History Smoking Status: Never Smoker Alcohol Use: occasionally Drug Use: none Marital Status: Housing Status: lives with significant other Occupation Status: retired Current/Historical Medications Scheduled Alendronate Sodium (Fosamax), 70 MG PO WK Calcium Carbonate-Vitamin D (Calcium 600 + D), 1 TABS PO DAILY Cholecalciferol (Vitamin D-1000), 1,000 UNIT PO DAILY Dexamethasone (Decadron), 4 MG PO UD Leuprolide Acetate (Lupron Depot), Q 3 MONTHS Multivitamin (Multivitamin), 1 TAB PO DAILY Ondansetron (Ondansetron HCl), 8 MG PO PRN Vitamin E (Vitamin E), 400 MG PO DAILY Allergies Coded Allergies: No Known Allergies (Unverified , 04/24/16) Physical Exam Vital Signs Date Time Temp Pulse Resp B/P (MAP) Pulse Ox O2 Delivery O2 Flow Rate FiO2 11/16/16 23:18 108 16 114/71 98 11/16/16 22:00 110 16 117/69 98 Room Air 11/16/16 21:18 111 11/16/16 21:00 113 16 120/67 98 Room Air 11/16/16 19:02 37.2 120 18 115/69 95 Room Air Physical Exam GENERAL: Awake, alert, well-appearing, NAD HENT: Normocephalic, atraumatic. EYES: Normal conjunctiva. Sclera non-icteric. NECK: Supple. No nuchal rigidity. FROM. RESPIRATORY: CTAB, no rhonchi, wheezing, crackles CARDIAC: Tachycardic rate, regular rhythm, no MRG ABDOMEN: Soft, NTND, BS+ : redness to the scrotum, uncircumcised, difficulty retracting the foreskin, edge of foreskin appears macerated with redness MSK: No chest wall TTP, no LE edema, no CVA TTP NEURO: GCS 15, CN 2-12 intact, moves all 4s on command SKIN: No jaundice noted, diffuse blanching nonconfluent macules over the LLE and RLE with mild warmth, no swelling Medical Decision & Procedures ER Provider Diagnostic Interpretation: Radiology results as stated below per my review and radiologist interpretation: CHEST ONE VIEW PORTABLE CLINICAL HISTORY: Fever, sepsis. COMPARISON STUDY: 04/24/2016 FINDINGS: The heart is borderline enlarged. There is abnormal contour of the left mid mediastinum. CT scanning is recommended in follow-up. There is mild elevation left hemidiaphragm. There is no focal pulmonary consolidation. There are minor left basilar atelectatic changes. There is no significant pleural fluid.[ IMPRESSION: Abnormal configuration of the left mediastinum, suspicious for mass/adenopathy. Contrast-enhanced chest CT scanning is recommended in follow-up. Electronically signed by: Jayro Gaston M.D. 11/16/2016 9:16 PM Dictated Date/Time: 11/16/2016 9:13 PM Laboratory Results 11/16/16 20:35 Red Blood Count 4.51, Mean Corpuscular Volume 87.4, Mean Corpuscular Hemoglobin 30.4, Mean Corpuscular Hemoglobin Concent 34.8, Mean Platelet Volume 9.5, Neutrophils (%) (Auto) 51.5, Lymphocytes (%) (Auto) 32.5, Monocytes (%) (Auto) 8.5, Eosinophils (%) (Auto) 0.0, Basophils (%) (Auto) 4.0, Neutrophils # (Auto) 1.03, Lymphocytes # (Auto) 0.65, Monocytes # (Auto) 0.17, Eosinophils # (Auto) 0.00, Basophils # (Auto) 0.08 11/16/16 20:35 Test 11/16/16 20:35 11/16/16 21:03 White Blood Count 2.00 K/uL (4.8-10.8) Red Blood Count 4.51 M/uL (4.7-6.1) Hemoglobin 13.7 g/dL (14.0-18.0) Hematocrit 39.4 % (42-52) Mean Corpuscular Volume 87.4 fL (80-100) Mean Corpuscular Hemoglobin 30.4 pg (25-34) Mean Corpuscular Hemoglobin Concent 34.8 g/dl (32-36) Platelet Count 214 K/uL (130-400) Mean Platelet Volume 9.5 fL (7.4-10.4) Neutrophils (%) (Auto) 51.5 % Lymphocytes (%) (Auto) 32.5 % Monocytes (%) (Auto) 8.5 % Eosinophils (%) (Auto) 0.0 % Basophils (%) (Auto) 4.0 % Neutrophils # (Auto) 1.03 K/uL (1.4-6.5) Lymphocytes # (Auto) 0.65 K/uL (1.2-3.4) Monocytes # (Auto) 0.17 K/uL (0.11-0.59) Eosinophils # (Auto) 0.00 K/uL (0-0.5) Basophils # (Auto) 0.08 K/uL (0-0.2) RDW Standard Deviation 40.4 fL (36.4-46.3) RDW Coefficient of Variation 12.6 % (11.5-14.5) Immature Granulocyte % (Auto) 3.5 % Immature Granulocyte # (Auto) 0.07 K/uL (0.00-0.02) Prothrombin Time 10.9 SECONDS (9.0-12.0) Prothromb Time International Ratio 1.0 (0.9-1.1) Activated Partial Thromboplast Time 32.0 SECONDS (21.0-31.0) Partial Thromboplastin Ratio 1.2 Anion Gap 7.0 mmol/L (3-11) Est Creatinine Clear Calc Drug Dose 83.0 ml/min Estimated GFR () 103.7 Estimated GFR (Non- 89.5 BUN/Creatinine Ratio 16.4 (10-20) Calcium Level 8.6 mg/dl (8.5-10.1) Total Bilirubin 0.7 mg/dl (0.2-1) Direct Bilirubin 0.2 mg/dl (0-0.2) Aspartate Amino Transf (AST/SGOT) 19 U/L (15-37) Alanine Aminotransferase (ALT/SGPT) 17 U/L (12-78) Alkaline Phosphatase 76 U/L (45-117) Total Protein 6.5 gm/dl (6.4-8.2) Albumin 2.7 gm/dl (3.4-5.0) Lipase 113 U/L (73-393) Urine Color DK YELLOW Urine Appearance CLOUDY (CLEAR) Urine pH 7.5 (4.5-7.5) Urine Specific [place] 1.023 (1.000-1.030) Urine Protein NEG (NEG) Urine Glucose (UA) NEG (NEG) Urine Ketones TRACE (NEG) Urine Occult Blood 1+ (NEG) Urine Nitrite POS (NEG) Urine Bilirubin NEG (NEG) Urine Urobilinogen NEG (NEG) Urine Leukocyte Esterase LARGE (NEG) Urine WBC (Auto) >30 /hpf (0-5) Urine RBC (Auto) 5-10 /hpf (0-4) Urine Hyaline Casts (Auto) 10-30 /lpf (0-5) Urine Epithelial Cells (Auto) 5-10 /lpf (0-5) Urine Bacteria (Auto) NEG (NEG) Urine Yeast (Auto) (NONE PRSENT) Laboratory results reviewed by me Medications Administered Medications (Trade) Dose Ordered Sig/Rosita Route Start Time Stop Time Status Last Admin Dose Admin Sodium Chloride 1,000 ml @ 2,000 mls/hr Q30M ONCE IV 11/16/16 20:15 11/16/16 20:44 DC 11/16/16 20:15 2,000 MLS/HR Ceftriaxone Sodium (Rocephin Inj) 1 gm NOW STAT IV 11/16/16 22:00 11/16/16 22:02 DC 11/16/16 22:21 1 GM Sodium Chloride 1,000 ml @ 100 mls/hr Q10H STAT IV 11/16/16 22:00 11/17/16 00:07 DC 11/16/16 22:21 100 MLS/HR Cephalexin Monohydrate (Keflex Cap) 500 mg NOW ONCE PO 11/16/16 22:45 11/16/16 22:46 DC 11/16/16 22:45 500 MG ECG Indication: tachycardia Rate (beats per minute): 112 Rhythm: sinus tachycardia Findings: left axis deviation, other (normal intervals, no other STS changes or TWI) ED Course 2004: The patient was evaluated in room C8. A complete history and physical exam was performed. 2236: I discussed the patient's case with Dr. Reza, [facility] hospitalist. The patient will be evaluated for further treatment and disposition. 2239: Upon reexamination, the patient was resting comfortably. I discussed the test results and treatment plan with him. The patient will be evaluated for further management. Medical Decision Differential diagnosis: UTI, cellulitis, pneumonia, neutropenic fever. The patient is a 76 year old white male with a past medical history of prostate cancer, lymph node cancer, left leg cellulitis who presents to the ED with a cc of persistent fever as high as 101.7 beginning today. Patient was seen and evaluated at the bedside. Patient is not appear toxic. Patient was fairly well-appearing. Patient was complaining of some mild pain with urination. Of note on exam patient was tachycardic and did have a prior documented temperature at home. Patient is receiving chemotherapy which was completed last w/ Dr. Saldivar. Of note on patient's exam he had some difficulty with retraction of the foreskin and the skin did appear macerated and there was concern for possible cellulitic change. Patient did have blood work that was completed along with a chest x-ray and EKG and urinalysis. Patient's UA was concerning for infection. Patient was given Rocephin and patient was also given Keflex for possible skin coverage. Of note patient did have also blanching macular rash over the bilateral lower extremities. Patient has had prior issues with some cellulitis but was given Keflex at this time does not appear to be necessarily cellulitis but potentially an exanthem. Patient's chest was negative. Patient was leukopenic but had an absolute neutrophil count of approximately 1000 so not a true neutropenic fever at this time. Given the patient's leukopenia, tachycardia, and fever I spoke with the hospitalist. The patient would benefit from admission. Medication Reconcilliation Current Medication List: was personally reviewed by me Blood Pressure Screening Patient's blood pressure: Normal blood pressure Blood pressure disposition: Did not require urgent referral Consults Time Called: [id number] Consulting Physician: Dr. Reza [facility] hospitalist Returned Call: [phone] Discussed the patient's case. The patient will be evaluated for further treatment and disposition. Impression Primary Impression: Cystitis Additional Impressions: Sepsis Tachycardia Cellulitis Scribe Attestation The scribe's documentation has been prepared under my direction and personally reviewed by me in its entirety. I confirm that the note above accurately reflects all work, treatment, procedures, and medical decision making performed by me. Departure Information Dispostion Being Evaluated By Hospitalist Referrals RV. Castaneda MD (PCP) Patient Instructions My [facility] Problem Qualifiers Additional Impressions: Sepsis Sepsis type: sepsis due to unspecified organism Qualified Codes: A41.9 - Sepsis, unspecified organism Cellulitis Site of cellulitis: trunk Site of cellulitis of trunk: groin Qualified Codes: L03.314 - Cellulitis of groin
[2016-11-16] MEDS ORDERED: ONDA-63 PO (20:44)
[2016-11-16] MEDS ORDERED: DXM/4 PO (20:44)
[2016-11-16 20:48] LABS: BASO ABS # 0.08 K/uL (0-0.2); COMPLETE YES; HEMATOCRIT 39.4 % (42-52); IG% 3.5 %; LYMPH % 32.5 %; LYMPH ABS # 0.65 K/uL (1.2-3.4); MEAN CELL VOLUME 87.4 fL (80-100); MEAN CORPUSCULAR HEMOGLOBIN 30.4 pg (25-34); MEAN CORPUSCULAR HGB CONC 34.8 g/dl (32-36); MEAN PLATELET VOLUME 9.5 fL (7.4-10.4); MONO % 8.5 %; NEUT % 51.5 %; PLATELET COUNT 214 K/uL (130-400); RED BLOOD COUNT 4.51 M/uL (4.7-6.1)
[2016-11-16 21:05] LABS: PARTIAL THROMBOPLASTIN RATIO 1.2; PROTHROMBIN TIME (PATIENT) 10.9 SECONDS (9.0-12.0)
[2016-11-16 21:08] LABS: BUN/CREATININE RATIO 16.4 (10-20); CALCIUM 8.6 mg/dl (8.5-10.1); CREATININE 0.73 mg/dl (0.60-1.40)
--- NOTE | 2016-11-16 21:17 | DIAGNOSTIC IMAGING REPORT ---
CHEST ONE VIEW PORTABLE CLINICAL HISTORY: Fever, sepsis. COMPARISON STUDY: 04/24/2016 FINDINGS: The heart is borderline enlarged. There is abnormal contour of the left mid mediastinum. CT scanning is recommended in follow-up. There is mild elevation left hemidiaphragm. There is no focal pulmonary consolidation. There are minor left basilar atelectatic changes. There is no significant pleural fluid.[ IMPRESSION: Abnormal configuration of the left mediastinum, suspicious for mass/adenopathy. Contrast-enhanced chest CT scanning is recommended in follow-up. Electronically signed by: Jayro Gaston M.D. 11/16/2016 9:16 PM Dictated Date/Time: 11/16/2016 9:13 PM
[2016-11-16 21:21] LABS: URINE APPEARANCE CLOUDY (CLEAR); URINE BILIRUBIN NEG (NEG); URINE COLOR DK YELLOW; URINE NITRITE POS (NEG); URINE PH 7.5 (4.5-7.5); URINE SPECIFIC GRAVITY 1.023 (1.000-1.030); UROBILINOGEN NEG (NEG)
[2016-11-16 21:35] LABS: MANUAL MICROSCOPIC REQUIRED? NO; REVIEW REQ? YES; SULFASALICYLIC ACID NEG (NEG)
[2016-11-16] MEDS ORDERED: CEFTRIAXONE SOD INJ 1 GM ADDVIAL IV STA (22:00)
[2016-11-16] MEDS ORDERED: SODIUM CHLORIDE 0.9% 1000ML 1,000 ML IV STA (22:00)
[2016-11-16] MEDS ORDERED: CEPHALEXIN MONOHYDRATE 250 MG CAP PO ONE (22:45)
[2016-11-16] MEDS ORDERED: ACETAMINOPHEN 325 MG TAB PO PRN (23:00)
[2016-11-16] MEDS ORDERED: MAGNESIUM HYDROXIDE SUSP 30 ML UDC PO PRN (23:00)
[2016-11-16] MEDS ORDERED: ONDANSETRON INJ 2 MG/ML 2 ML VIAL IV PRN (23:00)
[2016-11-16] MEDS ORDERED: ALUMINUM/MAGNESIUM/SIMETH (MAALOX MAX) 30 ML UDC PO PRN (23:00)
--- NOTE | 2016-11-16 23:05 | History and Physical ---
History & Physical Date & Time of Service: Nov 16, 2016 at 23:01 Chief Complaint: Fever 101.7, Burning Primary Care Physician: RV. Castaneda MD History of Present Illness Source: patient, spouse 76 yo M with metastatic prostate Ca, who received his first dose of chemotherapy on , who presents with dysuria, hesitancy, and frequency. He also noticed redness over his left leg from his buttock region from when he arrived in the ED. He had fevers at home but nothing in the ED. He denies chills or rigors. He has persistent pain currently. He denies any previous UTIs. He reports he has intermittently had cellulitis ever since lymph node radiation about 2 years ago. Past Medical/Surgical History Medical Problems: (1) Prostate cancer Status: Chronic Surgical Problems: (1) History of prostatectomy Status: Resolved Family History FHx: diabetes FHx: heart disease Social History Smoking Status: Never Smoker Smokeless Tobacco Use: No Alcohol Use: none Drug Use: none Marital Status: Housing status: lives with family Occupational Status: retired Immunizations History of Influenza Vaccine: Yes History of Tetanus Vaccine?: Yes History of Pneumococcal: Yes History of Hepatitis B Vaccine: Unknown Multi-Drug Resistant Organisms History of MDRO: No Allergies Coded Allergies: No Known Allergies (Unverified , 04/24/16) Home Medications Scheduled Alendronate Sodium (Fosamax), 70 MG PO WK Calcium Carbonate-Vitamin D (Calcium 600 + D), 1 TABS PO DAILY Cholecalciferol (Vitamin D-1000), 1,000 UNIT PO DAILY Dexamethasone (Decadron), 4 MG PO UD Leuprolide Acetate (Lupron Depot), Q 3 MONTHS Multivitamin (Multivitamin), 1 TAB PO DAILY Ondansetron (Ondansetron HCl), 8 MG PO PRN Vitamin E (Vitamin E), 400 MG PO DAILY Review of Systems See HPI for pertinent positives & negatives. A total of 10 systems reviewed and were otherwise negative. Physical Exam Vital Signs Date Time Temp Pulse Resp B/P (MAP) Pulse Ox O2 Delivery O2 Flow Rate FiO2 11/16/16 22:00 110 16 117/69 98 Room Air 11/16/16 21:18 111 11/16/16 21:00 113 16 120/67 98 Room Air 11/16/16 19:02 37.2 120 18 115/69 95 Room Air General Appearance: WD/WN, + mild distress Head: normocephalic, atraumatic Eyes: normal inspection, PERRL ENT: hearing grossly normal Neck: supple, no JVD Respiratory/Chest: lungs clear, normal breath sounds, no respiratory distress Cardiovascular: regular rate, rhythm, no edema, no murmur, normal peripheral pulses Abdomen/GI: soft Genitourinary - Male: + pertinent finding (dry discharge around foreskin) Back: no CVA tenderness, no muscle spasm Extremities/Musculoskelatal: no calf tenderness, no pedal edema Neurologic/Psych: alert, normal mood/affect, oriented x 3 Skin: + rash (faint erythema from mid L posterior leg, with brighter area of erythema to L lateral buttocks. no abscess or induration) Diagnostics Laboratory Results Results Past 24 Hours Test 11/16/16 20:35 11/16/16 21:03 Range/Units White Blood Count 2.00 4.8-10.8 K/uL Red Blood Count 4.51 4.7-6.1 M/uL Hemoglobin 13.7 14.0-18.0 g/dL Hematocrit 39.4 42-52 % Mean Corpuscular Volume 87.4 80-100 fL Mean Corpuscular Hemoglobin 30.4 25-34 pg Mean Corpuscular Hemoglobin Concent 34.8 32-36 g/dl Platelet Count 214 130-400 K/uL Mean Platelet Volume 9.5 7.4-10.4 fL Neutrophils (%) (Auto) 51.5 % Lymphocytes (%) (Auto) 32.5 % Monocytes (%) (Auto) 8.5 % Eosinophils (%) (Auto) 0.0 % Basophils (%) (Auto) 4.0 % Neutrophils # (Auto) 1.03 1.4-6.5 K/uL Lymphocytes # (Auto) 0.65 1.2-3.4 K/uL Monocytes # (Auto) 0.17 0.11-0.59 K/uL Eosinophils # (Auto) 0.00 0-0.5 K/uL Basophils # (Auto) 0.08 0-0.2 K/uL RDW Standard Deviation 40.4 36.4-46.3 fL RDW Coefficient of Variation 12.6 11.5-14.5 % Immature Granulocyte % (Auto) 3.5 % Immature Granulocyte # (Auto) 0.07 0.00-0.02 K/uL Prothrombin Time 10.9 9.0-12.0 SECONDS Prothromb Time International Ratio 1.0 0.9-1.1 Activated Partial Thromboplast Time 32.0 21.0-31.0 SECONDS Partial Thromboplastin Ratio 1.2 Sodium Level 135 136-145 mmol/L Potassium Level 4.0 3.5-5.1 mmol/L Chloride Level 102 98-107 mmol/L Carbon Dioxide Level 26 21-32 mmol/L Anion Gap 7.0 3-11 mmol/L Blood Urea Nitrogen 12 7-18 mg/dl Creatinine 0.73 0.60-1.40 mg/dl Est Creatinine Clear Calc Drug Dose 83.0 ml/min Estimated GFR () 103.7 Estimated GFR (Non- 89.5 BUN/Creatinine Ratio 16.4 12-16 Random Glucose 147 70-99 mg/dl Calcium Level 8.6 8.5-10.1 mg/dl Total Bilirubin 0.7 0.2-1 mg/dl Direct Bilirubin 0.2 0-0.2 mg/dl Aspartate Amino Transf (AST/SGOT) 19 15-37 U/L Alanine Aminotransferase (ALT/SGPT) 17 12-78 U/L Alkaline Phosphatase 76 45-117 U/L Total Protein 6.5 6.4-8.2 gm/dl Albumin 2.7 3.4-5.0 gm/dl Lipase 113 73-393 U/L Urine Color DK YELLOW Urine Appearance CLOUDY CLEAR Urine pH 7.5 4.5-7.5 Urine Specific [place] 1.023 1.000-1.030 Urine Protein NEG NEG Urine Glucose (UA) NEG NEG Urine Ketones TRACE NEG Urine Occult Blood 1+ NEG Urine Nitrite POS NEG Urine Bilirubin NEG NEG Urine Urobilinogen NEG NEG Urine Leukocyte Esterase LARGE NEG Urine WBC (Auto) >30 0-5 /hpf Urine RBC (Auto) 5-10 0-4 /hpf Urine Hyaline Casts (Auto) 10-30 0-5 /lpf Urine Epithelial Cells (Auto) 5-10 0-5 /lpf Urine Bacteria (Auto) NEG NEG Urine Yeast (Auto) NONE PRSENT Microbiology Results 11/16/16 Blood Culture, Received Pending 11/16/16 Blood Culture, Received Pending 11/16/16 Urine Culture, Received Pending Diagnostic Radiology IMPRESSION: Abnormal configuration of the left mediastinum, suspicious for mass/adenopathy. Contrast-enhanced chest CT scanning is recommended in follow-up. Impression Assessment and Plan 76 yo M, now immunosuppressed from chemotherapy, with likely cystitis and concurrent cellulitis. Cytitis - Will provide Rocephin IV daily - Urine culture - Pt can have bar if requests Cellulitis of L leg - Will add Vancomycin - Continue to monitor Potential candelario around foreskin - Nystatin Hx of prostate Ca, on chemo - Day team to discuss providing Neupogen with pts oncologist, Dr Saldivar VTE: Heparin Code status: Full Dispo: 4E\ Attending Addendum: I have physically seen and examined this patient, have directed the resident's medical activities, and agree with the H&P as noted above with the following exceptions as noted. The patient is awake, alert and oriented 3, well-developed and well-nourished , normocephalic and atraumatic, lying in bed and in no acute distress. HEENT--PERRL, EOMI, mucous membranes and oropharynx dry. Neck--supple, no JVD or bruits, thyroid normal, trachea midline, no adenopathy. Heart--normal S1 and S2, no extra beats, no murmurs, rubs or gallops. Lungs--clear bilaterally with good air movement, no respiratory distress, no accessory muscle use. Abdomen--normal bowel sounds and soft, nontender and nondistended, no hernias or masses, no organomegaly. Extremities--no cyanosis, clubbing or edema. There are good distal pulses b/l. Dermatologic--erythema from left gluteal area/iliac crest along the iliotibial band. Mild balanitis. Neurologic--cranial nerves II through XII grossly intact. Rheumatologic--normal range of motion Psychiatric--normal affect. Assessment and Plan: Neutropenic infection/UTI/left lower extremity cellulitis-- Place on vancomycin IV and ceftriaxone IV. Follow urine culture and sensitivity report. For mild balanitis, topical nystatin cream. Prostate cancer/recent chemotherapy treatment/neutropenia-- Follows with Dr. Saldivar. Pain see decreases further tomorrow, would consider Neupogen. Level of Care Telemetry Advanced Directives Existing Advance Directive: No Existing Living Will: No Existing Power of Wardrobe Specialty Worker: No Resuscitation Status FULL RESUSCITATION VTE Prophylaxis VTE Risk Assessment Done? Y/N: Yes Risk Level: Moderate Given or contraindicated: SCD's Social Service Consult Cancer Patient Under [place] Resident Tracking Resident Involvement: Resident Care Provided Care Provided: Adult Hospital Medicine
[2016-11-16] MEDS ORDERED: VANCOMYCIN INJ 1,000 MG in SODIUM CHLORIDE 0.9% 250ML 250 ML IV STA (23:30)
[2016-11-17] VITALS (8 sets, daily range): BP systolic 95–111; BP diastolic 58–69; PULSE 86–115; TEMP 36.7–37.9; O2SAT 95–97; BMI 27.5
[2016-11-17] MEDS ORDERED: VANCOMYCIN INJ 1,750 MG in SODIUM CHLORIDE 0.9% 500ML 500 ML IV STA (00:09)
[2016-11-17] MEDS ORDERED: VANCOMYCIN CONSULT ACTIVE PRN ×2 (00:15→20:45)
[2016-11-17] MEDS: NSS + 20MEQ KCL 1000ML 1,000 ML IV SCH ×3 (00:28→16:24)
[2016-11-17] MEDS: SACCHAROMYCES BOUL (FLORASTOR) 250 MG CAP PO SCH (07:50)
[2016-11-17] MEDS: MULTIVITAMIN TAB PO SCH (07:50)
[2016-11-17] MEDS: NYSTATIN POWDER 15GM BTL EXT SCH ×2 (07:50→21:09)
[2016-11-17 08:35] LABS: BASO ABS # 0.06 K/uL (0-0.2); COMPLETE YES; LYMPH % 41.3 %; LYMPH ABS # 1.26 K/uL (1.2-3.4); MEAN CORPUSCULAR HEMOGLOBIN 29.5 pg (25-34); MEAN CORPUSCULAR HGB CONC 33.2 g/dl (32-36); MEAN PLATELET VOLUME 9.4 fL (7.4-10.4); MONO % 9.5 %; NEUT % 45.2 %; PLATELET COUNT 253 K/uL (130-400); RED BLOOD COUNT 4.27 M/uL (4.7-6.1); WHITE BLOOD COUNT 3.05 K/uL (4.8-10.8)
[2016-11-17 08:50] LABS: BUN/CREATININE RATIO 13.4 (10-20); CALCIUM 7.7 mg/dl (8.5-10.1); CREATININE 0.68 mg/dl (0.60-1.40); POTASSIUM 4.1 mmol/L (3.5-5.1)
[2016-11-17] MEDS ORDERED: VANCOMYCIN INJ 1,000 MG in SODIUM CHLORIDE 0.9% 250ML 250 ML IV SCH ×3 (09:00→21:00)
[2016-11-17] MEDS ORDERED: HEPARIN SOD 5000 UNIT/0.5 ML CARP SQ SCH (09:00)
[2016-11-17] MEDS ORDERED: OPTIRAY 320 IV PRN (11:15)
--- NOTE | 2016-11-17 11:17 | Family Medicine Progress Note ---
Progress Note Date of Service Nov 17, 2016. Subjective Pt evaluation today including: conversation w/ patient, conversation w/ family (), physical exam Pain: Mild dysuria PO Intake: Good appetite and intake Voiding: no voiding problems, no incontinence Doing well at this time does not have complaints Notes he started chemotherapy 1 week ago for refractory disease No issues since arrival to floor Good appetite to eat breakfast today Urinary symptoms seems to be improving Constitutional: + fever, No chills, No sweats, No weight loss Eyes: No worsening of vision, No eye pain, No redness ENT: No nasal symptoms, No sore throat, No tinnitus Respiratory: No sputum, No wheezing, No shortness of breath Cardiovascular: No chest pain, No orthopnea, No palpitations Abdomen: No pain, No nausea, No vomiting, No diarrhea Musculoskeletal: + swelling (chronic left leg lyphedema), No joint pain, No muscle pain Male : + dysuria, No urinary frequency, No incontinence Neurologic: No memory loss, No weakness, No numbness/tingling, No vertigo Psychiatric: No anxiety, No insomnia Heme: No abnormal bleeding/bruising, No clotting problems, No swollen lymph nodes Endo: No fatigue, No excessive urination Skin: No rash, No new/changing skin lesions, No color change Medications Current Inpatient Medications Medications (Trade) Dose Ordered Sig/Rosita Route Start Time Stop Time Status Last Admin Dose Admin Heparin Sodium (Porcine) (Heparin Sq 5000 Unit/0.5ml) 5,000 unit Q12 SQ 11/17/16 09:00 12/17/16 08:59 11/17/16 07:53 5,000 UNIT Potassium Chloride/Sodium Chloride 1,000 ml @ 125 mls/hr Q8H IV 11/16/16 23:59 11/17/16 23:58 11/17/16 07:50 125 MLS/HR Acetaminophen (Tylenol Tab) 650 mg Q4H PRN PO 11/16/16 23:00 12/16/16 22:59 11/17/16 05:22 650 MG Al Hydrox/Mg Hydrox/Simethicone (Maalox Max Susp) 15 ml Q4H PRN PO 11/16/16 23:00 12/16/16 22:59 Magnesium Hydroxide (Milk Of Magnesia Susp) 30 ml Q12H PRN PO 11/16/16 23:00 12/16/16 22:59 Ondansetron HCl (Zofran Inj) 4 mg Q6H PRN IV 11/16/16 23:00 12/16/16 22:59 Multivitamins (Multivitamin Tab) 1 tab DAILY PO 11/17/16 08:00 12/17/16 08:59 11/17/16 07:50 1 TAB Saccharomyces Boulardii (Florastor Cap) 250 mg DAILY PO 11/17/16 08:00 12/17/16 08:59 11/17/16 07:50 250 MG Nystatin (Mycostatin Powder) 1 appln BID EXT 11/17/16 08:00 12/17/16 08:59 11/17/16 07:50 1 APPLN Ceftriaxone Sodium 1 gm/ Dextrose 50 ml @ 100 mls/hr Q24H IV 11/17/16 16:00 11/25/16 16:29 Ioversol (Optiray 320) 125 ml UD PRN IV 11/17/16 11:15 11/21/16 11:14 UNV Objective Physical Exam General Appearance: WD/WN, no apparent distress Eyes: normal inspection, EOMI ENT: hearing grossly normal, pharynx normal Neck: supple, no adenopathy, no JVD Respiratory/Chest: lungs clear, no respiratory distress Cardiovascular: regular rate, rhythm, no gallop, no murmur Abdomen: normal bowel sounds, non tender, soft Extremities: non-tender, + swelling (left leg, pitting 1+ in the calf; no erythema or tenderness along the entire extremity) Neurologic/Psychiatric: alert, normal mood/affect, oriented x 3 Skin: normal color, warm/dry, no rash Lymphatic: no adenopathy Laboratory Results Last 24 Hours Test 11/16/16 20:35 11/16/16 21:03 11/17/16 08:19 White Blood Count 2.00 K/uL 3.05 K/uL Red Blood Count 4.51 M/uL 4.27 M/uL Hemoglobin 13.7 g/dL 12.6 g/dL Hematocrit 39.4 % 38.0 % Mean Corpuscular Volume 87.4 fL 89.0 fL Mean Corpuscular Hemoglobin 30.4 pg 29.5 pg Mean Corpuscular Hemoglobin Concent 34.8 g/dl 33.2 g/dl Platelet Count 214 K/uL 253 K/uL Mean Platelet Volume 9.5 fL 9.4 fL Neutrophils (%) (Auto) 51.5 % 45.2 % Lymphocytes (%) (Auto) 32.5 % 41.3 % Monocytes (%) (Auto) 8.5 % 9.5 % Eosinophils (%) (Auto) 0.0 % 0.0 % Basophils (%) (Auto) 4.0 % 2.0 % Neutrophils # (Auto) 1.03 K/uL 1.38 K/uL Lymphocytes # (Auto) 0.65 K/uL 1.26 K/uL Monocytes # (Auto) 0.17 K/uL 0.29 K/uL Eosinophils # (Auto) 0.00 K/uL 0.00 K/uL Basophils # (Auto) 0.08 K/uL 0.06 K/uL RDW Standard Deviation 40.4 fL 41.2 fL RDW Coefficient of Variation 12.6 % 12.8 % Immature Granulocyte % (Auto) 3.5 % 2.0 % Immature Granulocyte # (Auto) 0.07 K/uL 0.06 K/uL Prothrombin Time 10.9 SECONDS Prothromb Time International Ratio 1.0 Activated Partial Thromboplast Time 32.0 SECONDS Partial Thromboplastin Ratio 1.2 Sodium Level 135 mmol/L 137 mmol/L Potassium Level 4.0 mmol/L 4.1 mmol/L Chloride Level 102 mmol/L 105 mmol/L Carbon Dioxide Level 26 mmol/L 26 mmol/L Anion Gap 7.0 mmol/L 6.0 mmol/L Blood Urea Nitrogen 12 mg/dl 9 mg/dl Creatinine 0.73 mg/dl 0.68 mg/dl Est Creatinine Clear Calc Drug Dose 83.0 ml/min 89.1 ml/min Estimated GFR () 103.7 106.8 Estimated GFR (Non- 89.5 92.1 BUN/Creatinine Ratio 16.4 13.4 Random Glucose 147 mg/dl 125 mg/dl Calcium Level 8.6 mg/dl 7.7 mg/dl Total Bilirubin 0.7 mg/dl Direct Bilirubin 0.2 mg/dl Aspartate Amino Transf (AST/SGOT) 19 U/L Alanine Aminotransferase (ALT/SGPT) 17 U/L Alkaline Phosphatase 76 U/L Total Protein 6.5 gm/dl Albumin 2.7 gm/dl Lipase 113 U/L Urine Color DK YELLOW Urine Appearance CLOUDY Urine pH 7.5 Urine Specific [place] 1.023 Urine Protein NEG Urine Glucose (UA) NEG Urine Ketones TRACE Urine Occult Blood 1+ Urine Nitrite POS Urine Bilirubin NEG Urine Urobilinogen NEG Urine Leukocyte Esterase LARGE Urine WBC (Auto) >30 /hpf Urine RBC (Auto) 5-10 /hpf Urine Hyaline Casts (Auto) 10-30 /lpf Urine Epithelial Cells (Auto) 5-10 /lpf Urine Bacteria (Auto) NEG Urine Yeast (Auto) Assessment and Plan 76 YO with refractory prostate Ca, admitted for UTI +/- left leg cellulitis He is doing well at this time with current treatment of UTI. Based on my examination, I do not think he has cellulitis of the leg. Our plan for him is as follows: Sepsis with bacteremia secondary to Urinary tract infection - Urine cultures pending - Blood cultures x 1 Gram positive cocci; 2nd set pending - Continue Ceftriaxone + Vancomycin - Encourage PO hydration Mediastinal Mass - Found on X-ray on admission - Discussed with Dr. Neal who follows patient and noted that no work-up has been done previously; follow-up CT scan ordered - Follow-up CT scan confirms mass; likely metastatic disease from prostate Ca - Will need to address this in the context of current care Refractory Prostate Cancer - Follow-up with Dr. Neal as outpatient Left Leg Lymphedema - 2/2 previous radiotherapy to abdomen - No evidence of active cellulitis - Raise legs at night - Intermittent SCD during the day Meatal Fungal Infection - Nystatin cream DVT Prophylaxis - SCD Knee, SOLEDAD Hose - Heparin 5000 U s.c. TID - Encourage Ambulation Code Status - Level I Full Code Disposition - Med/Surg Continued [facility] stay due to: multiple IV medications needed Discharge planning: home Reviewed: Pt Seen/Exam by Me History no new concerns. continues to have burning with urination Constitutional: denies: fever Respiratory: negative: short of breath Cardiovascular: denies chest pain General Appearance: no apparent distress Respiratory: lungs clear, no respiratory distress Cardiovascular: regular rate, rhythm Neurologic/Psychiatric: alert, oriented x 3 Skin Characteristics: warm/dry Assessment/Plan Resident Physician Supervision Note: I was present with Dr. Grimaldo in bedside. I verified the bae history and physical, reviewed labs and image studies, discussed the case with the resident and agree with the findings and care plan.
--- NOTE | 2016-11-17 13:42 | DIAGNOSTIC IMAGING REPORT ---
(CHEST) THORAX WITH CT DOSE: 687.74 mGy.cm HISTORY: Abnormal chest x-ray L mediastinal distortion; ?mass?; hx of refractory prstate ca TECHNIQUE: Multiaxial CT images of the chest were performed following the intravenous administration of contrast. A dose lowering technique was utilized adhering to the principles of ALARA. COMPARISON: None. FINDINGS: Left anterior mediastinal mass appearing to extend from lower left cervical region through the superior mediastinum to the left compared periaortic and left anterior perihilar region. Maximum transaxial dimensions of 5.5 x 7.5 cm. This shows partial encasement of the left main and left pulmonary artery. It is immediately adjacent to the aortic arch. It extends to the substernal region and subsequently to the lower left soft tissue neck region. Neoplastic processes diagnosis of exclusion. No evidence for significant cardiac enlargement. Lungs otherwise remain clear. There are small bilateral pleural effusions. There is evidence for upper abdominal and retroperitoneal adenopathy. IMPRESSION: 1. Large mid and superior mediastinal mass accounting for the chest film findings. Described. 2. This appears to extend and/or originate from the left anterior mediastinal region with contiguous extension to the lower left soft tissue neck region. 3. Small bilateral pleural effusions. 4. Upper abdominal adenopathy. The above report was generated using voice recognition software. It may contain grammatical, syntax or spelling errors. Electronically signed by: Burak Sarabia M.D. 11/17/2016 1:40 PM Dictated Date/Time: 11/17/2016 1:34 PM
[2016-11-17] MEDS ORDERED: CEFTRIAXONE SOD INJ 1 GM in DEXTROSE 5% ADD-VANTAGE 50ML 50 ML IV SCH (16:00)
[2016-11-17] MEDS ORDERED: VANCOMYCIN INJ 1,000 MG in SODIUM CHLORIDE 0.9% 250ML 250 ML IV ONE (21:00)
[2016-11-18 00:09] VITALS: BP 108/68; PULSE 98; TEMP 37.5; O2SAT 96
[2016-11-18] MEDS: HEPARIN SOD 5000 UNIT/0.5 ML CARP SQ SCH ×3 (01:00→17:23)
[2016-11-18 04:09] VITALS: BP 107/63; PULSE 97; TEMP 37.3; O2SAT 98
[2016-11-18 07:00] VITALS: Ht 167.6 cm; Wt 79.9 kg
[2016-11-18 07:08] LABS: HEMATOCRIT 31.8 % (42-52); MEAN CELL VOLUME 87.6 fL (80-100); MEAN CORPUSCULAR HGB CONC 34.3 g/dl (32-36); MEAN PLATELET VOLUME 9.5 fL (7.4-10.4); PLATELET COUNT 212 K/uL (130-400); RED BLOOD COUNT 3.63 M/uL (4.7-6.1); WHITE BLOOD COUNT 2.65 K/uL (4.8-10.8)
[2016-11-18 07:32] VITALS: BP 112/79; PULSE 92; TEMP 37; O2SAT 97
[2016-11-18 07:35] LABS: CALCIUM 7.4 mg/dl (8.5-10.1); CREATININE 0.54 mg/dl (0.60-1.40); POTASSIUM 3.5 mmol/L (3.5-5.1)
[2016-11-18 07:40] LABS: BASO % 0.8 %; BASO ABS # 0.02 K/uL (0-0.2); COMPLETE YES; DOHLE BODIES 1+; EOS % 0.4 %; IG% 0.4 %; LYMPH % 49.1 %; MONO % 15.8 %; NEUT % 33.5 %
[2016-11-18] MEDS: VANCOMYCIN INJ 1,000 MG in SODIUM CHLORIDE 0.9% 250ML 250 ML IV SCH ×2 (07:59→20:21)
[2016-11-18] MEDS: SACCHAROMYCES BOUL (FLORASTOR) 250 MG CAP PO SCH (07:59)
[2016-11-18] MEDS: MULTIVITAMIN TAB PO SCH (07:59)
[2016-11-18] MEDS: NYSTATIN POWDER 15GM BTL EXT SCH ×2 (07:59→20:22)
--- NOTE | 2016-11-18 10:17 | Progress Note ---
Progress Note Date of Service Nov 18, 2016. Progress Note ID Consult Dictated #[id number] A/P: 1.LLE cellulitis 2. + blood culture, likely contaminant -Can continue vanco while in hospital, will stop rocephin, upon d/c would change to keflex 500mg po tid with food, x 14 days -Ok for d/c when otherwise stable -thank you
--- NOTE | 2016-11-18 10:58 | INFECT. DISEASE CONSULTATION ---
DATE OF CONSULTATION: 11/18/2016 REQUESTING PHYSICIAN: Dr. Carrion. HISTORY OF PRESENT ILLNESS: This is a 76-year-old gentleman who was admitted to the hospital after he had an isolated fever of 101 degrees at home. He does have a history of metastatic prostate cancer and recently started chemo on the . He had a fever after work and contacted the cancer center, which then instructed him to the Emergency Room. He does have a history of lymphedema in the left lower extremity and he was also noted to have significant erythema, pain and induration up into the right buttock. He was started empirically on vancomycin and ceftriaxone and he states within 1-2 doses of vancomycin, he had significant improvement. He continues to complain of some mild tightness in the area; however, he states that the erythema and pain have resolved completely. He denies any additional fevers. He has been afebrile with the exception of a low-grade temperature yesterday of 37.9. He is tolerating antibiotics well. As part of his initial workup, blood cultures were obtained and 1/2 is growing alpha strep, which is considered to be a skin contaminant. His urinalysis did not have any bacteria. There was pinpoint growth and it is being incubated. The patient is sitting up in bed and states he is in no pain. He denies any additional fevers or chills. He denies chest pain, cough, shortness of breath, nausea, vomiting or diarrhea. He is tolerating antibiotics well. He states he has had at least 3-4 episodes of cellulitis in his left lower extremity, the last one in April of this year. He did respond well to vancomycin and was subsequently transitioned to oral antibiotics. All remaining review of systems reviewed and are unremarkable. PAST MEDICAL HISTORY: Significant for metastatic prostate cancer. PAST SURGICAL HISTORY: Significant for prostatectomy. FAMILY HISTORY: Noncontributory. SOCIAL HISTORY: Negative for tobacco use, alcohol use or drug use. He is and lives with his . He denies any recent sick contacts. ALLERGIES: He has no known drug allergies. MEDICATIONS: Include vancomycin, subQ heparin, ceftriaxone, multivitamins, probiotics, Mycostatin powder, Tylenol, Maalox, milk of magnesia, and Zofran. PHYSICAL EXAMINATION: VITAL SIGNS: He is afebrile, pulse 92, respiratory rate 18, blood pressure 112/79, and oxygen saturation is 97% on room air. GENERAL: He is awake, alert and oriented x3. He is in no acute distress. HEENT: Mucous membranes are moist. Extraocular muscles are intact. HEART: Regular. LUNGS: Clear bilaterally. ABDOMEN: Soft, nontender, and nondistended. EXTREMITIES: There is no right lower extremity edema. There is lymphedema of the left lower extremity. I do not appreciate any warmth, erythema or induration; however, the patient states that his leg has significantly improved since admission. LABORATORY STUDIES: CBC today reveals a white blood cell count of 2.6, hemoglobin 10.9 and platelets are 212. Chemistry panel reveals a sodium of 139, potassium 3.5, chloride 110, bicarbonate 23, BUN 8, and creatinine 0.5. Glucose is 82. LFTs are within normal limits. Urinalysis had no bacteria. Blood culture on the has 1/2 sets with alpha strep skin contaminant. A CT of the chest did show mediastinal mass, which was thought to be secondary to metastatic prostate cancer. ASSESSMENT AND PLAN: 1. Left lower extremity cellulitis. 2. Positive blood culture, likely to be a contamination. He certainly can be continued on vancomycin for the duration of his hospital stay and discharged on oral Keflex 500 mg 3 times a day with food for a total of 14 days. I do not see any contraindication for discharge when otherwise medically stable. Thank you for this consultation. LOI
[2016-11-18 11:19] VITALS: BP 120/75; PULSE 89; TEMP 36.7; O2SAT 96
[2016-11-18] MEDS ORDERED: VANCOMYCIN TROUGH SCH (11:30)
--- NOTE | 2016-11-18 14:48 | Family Medicine Progress Note ---
Progress Note Date of Service Nov 18, 2016. Subjective Pt evaluation today including: conversation w/ patient, physical exam, chart review, lab review Pain: Mild left calf pain Voiding: no voiding problems, no incontinence, bar catheter in place Feels his leg is slightly more swollen after brief discontinuation of Vancomycin yesterday Feels Vancomycin is helping his left lower extremity swelling No ambulatory difficulties Appetite and intake are normal No issues or concerns from nursing staff Additional Comments: A 10 point review of systems was negative unless stated above. Medications Current Inpatient Medications Medications (Trade) Dose Ordered Sig/Rosita Route Start Time Stop Time Status Last Admin Dose Admin Acetaminophen (Tylenol Tab) 650 mg Q4H PRN PO 11/16/16 23:00 12/16/16 22:59 11/17/16 05:22 650 MG Al Hydrox/Mg Hydrox/Simethicone (Maalox Max Susp) 15 ml Q4H PRN PO 11/16/16 23:00 12/16/16 22:59 Magnesium Hydroxide (Milk Of Magnesia Susp) 30 ml Q12H PRN PO 11/16/16 23:00 12/16/16 22:59 Ondansetron HCl (Zofran Inj) 4 mg Q6H PRN IV 11/16/16 23:00 12/16/16 22:59 Multivitamins (Multivitamin Tab) 1 tab DAILY PO 11/17/16 08:00 12/17/16 08:59 11/18/16 07:59 1 TAB Saccharomyces Boulardii (Florastor Cap) 250 mg DAILY PO 11/17/16 08:00 12/17/16 08:59 11/18/16 07:59 250 MG Nystatin (Mycostatin Powder) 1 appln BID EXT 11/17/16 08:00 12/17/16 08:59 11/18/16 07:59 1 APPLN Ioversol (Optiray 320) 125 ml UD PRN IV 11/17/16 11:15 11/21/16 11:14 Heparin Sodium (Porcine) (Heparin Sq 5000 Unit/0.5ml) 5,000 unit Q8H SQ 11/18/16 01:00 12/17/16 08:59 11/18/16 08:02 5,000 UNIT Vancomycin HCl 1000 mg/Sodium Chloride 270 ml @ 125 mls/hr Q12H IV 11/18/16 08:00 11/27/16 19:59 11/18/16 07:59 125 MLS/HR Vancomycin HCl (Consult) 1 ea UD PRN N/A 11/17/16 20:45 12/17/16 20:44 Objective Vital Signs Date Time Temp Pulse Resp B/P (MAP) Pulse Ox O2 Delivery O2 Flow Rate FiO2 11/18/16 11:19 36.7 89 18 120/75 (90) 96 Room Air 11/18/16 08:00 Room Air 11/18/16 07:32 37.0 92 18 112/79 (90) 97 Room Air 11/18/16 04:09 37.3 97 20 107/63 (78) 98 Room Air 11/18/16 00:09 37.5 98 18 108/68 (81) 96 Room Air 11/18/16 00:00 Room Air 11/17/16 22:00 97 Room Air 11/17/16 19:36 37.3 92 18 106/67 (80) 97 Room Air 11/17/16 15:21 36.7 87 16 100/64 (76) 97 Room Air Physical Exam General Appearance: WD/WN, no apparent distress Eyes: normal inspection, EOMI ENT: hearing grossly normal, pharynx normal Neck: supple, no adenopathy, no JVD Respiratory/Chest: lungs clear, no respiratory distress Cardiovascular: regular rate, rhythm, no gallop, no murmur Abdomen: normal bowel sounds, non tender, soft Extremities: non-tender, no pedal edema Neurologic/Psychiatric: alert, normal mood/affect, oriented x 3 Skin: normal color, warm/dry, no rash, + pertinent finding (foreskin with erythema and scaling no pain or tenderness) Laboratory Results Last 24 Hours Test 11/18/16 06:29 White Blood Count 2.65 K/uL Red Blood Count 3.63 M/uL Hemoglobin 10.9 g/dL Hematocrit 31.8 % Mean Corpuscular Volume 87.6 fL Mean Corpuscular Hemoglobin 30.0 pg Mean Corpuscular Hemoglobin Concent 34.3 g/dl Platelet Count 212 K/uL Mean Platelet Volume 9.5 fL Neutrophils (%) (Auto) 33.5 % Lymphocytes (%) (Auto) 49.1 % Monocytes (%) (Auto) 15.8 % Eosinophils (%) (Auto) 0.4 % Basophils (%) (Auto) 0.8 % Neutrophils # (Auto) 0.89 K/uL Lymphocytes # (Auto) 1.30 K/uL Monocytes # (Auto) 0.42 K/uL Eosinophils # (Auto) 0.01 K/uL Basophils # (Auto) 0.02 K/uL RDW Standard Deviation 42.1 fL RDW Coefficient of Variation 13.0 % Immature Granulocyte % (Auto) 0.4 % Immature Granulocyte # (Auto) 0.01 K/uL Dohle Bodies 1+ Sodium Level 139 mmol/L Potassium Level 3.5 mmol/L Chloride Level 110 mmol/L Carbon Dioxide Level 23 mmol/L Anion Gap 6.0 mmol/L Blood Urea Nitrogen 8 mg/dl Creatinine 0.54 mg/dl Est Creatinine Clear Calc Drug Dose 113.8 ml/min Estimated GFR () 117.4 Estimated GFR (Non- 101.3 BUN/Creatinine Ratio 15.0 Random Glucose 82 mg/dl Calcium Level 7.4 mg/dl Assessment and Plan 76 YO with refractory prostate Ca, admitted for UTI and left lower extremity cellulitis Left leg appeared to be doing well yesterday but today he complains of worsening redness and swelling. Notes his history of cellulitis responding to Vancomycin. His leg does not appear clinically worse than yesterday but based on patient history will continue on with Vancomycin at this time. Urine showing pinpoint growth, the patient continues to have some discomfort with urination but this may also be due to concurrent meatal infection. Our plan for him is as follows: Left Leg Lymphedema with possible overlying cellulitis - 2/2 previous radiotherapy to abdomen - Possible cellulitis - Raise legs at night - Intermittent SCD during the day - Continue Vancomycin - ID consulted; recommendations appreciated Will look to transition to Keflex 500 TID at the time of discharge - In the setting of active malignancy, he at risk for DVT, so I will order lower extremity Doppler to rule-out DVT Urinary tract infection - Urine cultures with pinpoint growth; re-incubating - Blood cultures x 1 Gram positive cocci; 2nd set negative; likely contaminant - Discontinue Ceftriaxone - Continue Vancomycin - Keflex course when stable for discharge Bacteremia - 1 blood culture with alpha strep; 2nd set negative - Likely contamination - Clinically well Neutropenia - Secondary to recent chemotherapy - Currently afebrile - Neutropenic precautions on Mediastinal Mass - Found on X-ray on admission - Discussed with Dr. Neal who follows patient and noted that no work-up has been done previously; follow-up CT scan ordered - CT showed 5.5 x 7.5 cm mediastinal mass; results relayed to patient - Suspect in setting of history of refractive prostate ca, this is concerning for metastatic disease; results discussed with Dr. Neal who will continue to follow this Refractory Prostate Cancer - Follow-up with Dr. Neal as outpatient Meatal Fungal Infection - Nystatin cream - Will require Nystatin cream at discharge DVT Prophylaxis - SCD Knee, SOLEDAD Hose - Heparin 5000 U s.c. TID - Encourage Ambulation Code Status - Level I Full Code Disposition - Med/Surg Continued [facility] stay due to: multiple IV medications needed Discharge planning: home Reviewed: Pt Seen/Exam by Me History left leg with decreased redness and warmth Constitutional: denies: fever Respiratory: negative: short of breath Cardiovascular: denies chest pain General Appearance: no apparent distress Respiratory: lungs clear, no respiratory distress Cardiovascular: regular rate, rhythm Neurologic/Psychiatric: alert, oriented x 3 Skin Characteristics: other (left lower extremity with mild erythema) Assessment/Plan Resident Physician Supervision Note: I was present with Dr. Grimaldo in bedside. I verified the bae history and physical, reviewed labs and image studies, discussed the case with the resident and agree with the findings and care plan.
--- NOTE | 2016-11-18 15:03 | Pharmacy Progress Note ---
Pharmacy Abx Initial Consult Date of Service Nov 18, 2016. Pharmacy Dosing Scope Date of Consult: 11/17/16 Consultation requested by: Dr. Reza Pharmacy is consulted to re-initiate Vancomycin IV dosing therapy for cellulitis , order appropriate labs and adjust drug dose/frequency. Subjective The patient is a 76 year old male admitted on Nov 16, 2016 at 23:25. Objective Height (Feet): 5 Height (Inches): 6.00 Weight (Kilograms): 79.900 Vital Signs (Past 12Hrs) Vital Signs Past 12 Hours Date Time Temp Pulse Resp B/P (MAP) Pulse Ox O2 Delivery O2 Flow Rate FiO2 11/18/16 11:19 36.7 89 18 120/75 (90) 96 Room Air 11/18/16 08:00 Room Air 11/18/16 07:32 37.0 92 18 112/79 (90) 97 Room Air 11/18/16 04:09 37.3 97 20 107/63 (78) 98 Room Air Lab Results (24Hrs) Laboratory Tests (24 Hours) Test 11/18/16 06:29 White Blood Count 2.65 K/uL (4.8-10.8) L Red Blood Count 3.63 M/uL (4.7-6.1) L Hemoglobin 10.9 g/dL (14.0-18.0) L Hematocrit 31.8 % (42-52) L Mean Corpuscular Volume 87.6 fL (80-100) Mean Corpuscular Hemoglobin 30.0 pg (25-34) Mean Corpuscular Hemoglobin Concent 34.3 g/dl (32-36) Platelet Count 212 K/uL (130-400) Mean Platelet Volume 9.5 fL (7.4-10.4) Neutrophils (%) (Auto) 33.5 % Lymphocytes (%) (Auto) 49.1 % Monocytes (%) (Auto) 15.8 % Eosinophils (%) (Auto) 0.4 % Basophils (%) (Auto) 0.8 % Neutrophils # (Auto) 0.89 K/uL (1.4-6.5) *L Lymphocytes # (Auto) 1.30 K/uL (1.2-3.4) Monocytes # (Auto) 0.42 K/uL (0.11-0.59) Eosinophils # (Auto) 0.01 K/uL (0-0.5) Basophils # (Auto) 0.02 K/uL (0-0.2) Micro Results Date/Time Source Procedure Growth Status 11/16/16 20:52 Blood Blood Culture - Preliminary Alpha Strep Not S.pne/Enteroco - possible contaminant per ID Consult Resulted 11/16/16 20:35 Blood Blood Culture - Preliminary NO GROWTH TO DATE. Resulted 11/16/16 21:03 Urine,Catheterized Urine Culture - Final GREATER THAN THREE TYPES OF ORGANISMS... Complete Risk Factors for Resistance * Immunocompromised: hx of prostate cancer being treated with chemotherapy under the care of Dr. Saldivar Assessment & Plan Assessment 76 year old male * pt has history of prostate cancer - receiving chemotherapy under the care of Dr. Saldivar * pt admitted with neutropenic fever Plan Pharmacy consulted for treatment of cellulitis Vancomycin IV * Loading dose: 1750 mg (23 mg/kg) given 11/17/16 @0030 * Vancomycin consult d/c'ed 11/17/16 @0900, then restarted 11/17/16 @2030 * Maintenance dose: 1000 mg IV (13 mg/kg) every 12 hours * Estimated P'kinetic levels: ke= 0.0747/hr, t1/2= 9 hrs * Goal trough level for cellulitis : ~15 mcg/mL * Trough level ordered for 11/19/16 ~30 minutes before the 4th maintenance dose Pharmacy will continue to follow and will adjust dose/frequency as necessary. Thank you.
[2016-11-18 15:38] VITALS: BP 118/76; PULSE 91; TEMP 36.6; O2SAT 96
--- NOTE | 2016-11-18 15:56 | DIAGNOSTIC IMAGING REPORT ---
ULTRASOUND VENOUS DOPPLER ULTRASOUND OF THE LEFT LOWER EXTREMITY. CLINICAL HISTORY: r/o dvt; currently being treated for cellulitis COMPARISON STUDY: 03/02/2015 FINDINGS: Real-time and color flow Doppler imaging were performed. Flow was seen within the femoral, popliteal and calf veins with no intraluminal thrombus demonstrated. The saphenous vein is patent. There is extensive pathologic left inguinal adenopathy with nodes measuring up to 5.5 cm in length. IMPRESSION: 1. No evidence of left lower extremity DVT 2. Extensive pathologic left inguinal lymphadenopathy Electronically signed by: Jayro Gaston M.D. 11/18/2016 3:55 PM Dictated Date/Time: 11/18/2016 3:52 PM
[2016-11-18 20:05] VITALS: BP 113/74; PULSE 90; TEMP 36.8; O2SAT 97
[2016-11-19 00:15] VITALS: BP 146/85; PULSE 92; TEMP 36.7; O2SAT 97
[2016-11-19 00:44] VITALS: O2SAT 97
[2016-11-19] MEDS: HEPARIN SOD 5000 UNIT/0.5 ML CARP SQ SCH ×2 (00:59→09:00)
[2016-11-19 03:54] VITALS: BP 113/72; PULSE 84; TEMP 36.9; O2SAT 96
[2016-11-19] MEDS ORDERED: VANCOMYCIN TROUGH SCH (07:30)
[2016-11-19 08:17] LABS: HEMATOCRIT 33.5 % (42-52); MEAN CELL VOLUME 86.1 fL (80-100); MEAN CORPUSCULAR HEMOGLOBIN 29.3 pg (25-34); MEAN PLATELET VOLUME 9.3 fL (7.4-10.4); PLATELET COUNT 251 K/uL (130-400); RED BLOOD COUNT 3.89 M/uL (4.7-6.1); WHITE BLOOD COUNT 2.41 K/uL (4.8-10.8)
[2016-11-19 08:38] LABS: BUN/CREATININE RATIO 12.7 (10-20); CALCIUM 7.6 mg/dl (8.5-10.1); CREATININE 0.59 mg/dl (0.60-1.40); POTASSIUM 3.1 mmol/L (3.5-5.1)
[2016-11-19 08:39] VITALS: BP 116/77; PULSE 92; TEMP 36.6; O2SAT 95
[2016-11-19] MEDS ORDERED: NYSP EXT (08:47)
[2016-11-19] MEDS ORDERED: CEPH-571 PO (08:47)
--- NOTE | 2016-11-19 08:49 | Discharge Instructions ---
Discharge Instructions Date of Service Nov 19, 2016. Admission Reason for Admission: Cellulitis Of Left Lower Extremity, Uti Discharge Discharge Diagnosis / Problem: Left Leg cellulitis Discharge Goals Goal(s): Decrease discomfort, Improve function Activity Recommendations Activity Limitations: resume your previous activity Use stocking and lymphedema pump regularly to avoid leg swelling/edema Avoid keeping the leg propped up . Instructions / Follow-Up Instructions / Follow-Up With family physician in one week Current Hospital Diet Patient's current hospital diet: Regular Diet Discharge Diet Recommended Diet: Regular Diet Pending Studies Studies pending at discharge: no Medical Emergencies . Who to Call and When: Medical Emergencies: If at any time you feel your situation is an emergency, please call 911 immediately. . Non-Emergent Contact Non-Emergency issues call your: Primary Care Provider . . "Provider Documentation" section prepared by Ivet Carrion. . VTE Core Measure Inpt VTE Proph given/why not?: SCD's
[2016-11-19 08:57] LABS: BASO % 0.4 %; BASO ABS # 0.01 K/uL (0-0.2); COMPLETE YES; EOS % 0.4 %; IG% 0.8 %; LYMPH % 52.7 %; LYMPH ABS # 1.27 K/uL (1.2-3.4); MONO % 16.6 %; NEUT % 29.1 %
[2016-11-19] MEDS: VANCOMYCIN INJ 1,000 MG in SODIUM CHLORIDE 0.9% 250ML 250 ML IV SCH (08:58)
[2016-11-19] MEDS: SACCHAROMYCES BOUL (FLORASTOR) 250 MG CAP PO SCH (09:03)
[2016-11-19] MEDS: MULTIVITAMIN TAB PO SCH (09:03)
[2016-11-19] MEDS: NYSTATIN POWDER 15GM BTL EXT SCH (09:04)
[2016-11-19 09:53] VITALS: BP 116/77; PULSE 92; TEMP 36.6; O2SAT 95
--- NOTE | 2016-11-19 12:27 | Discharge Summary ---
Discharge Summary Date of Service Nov 19, 2016. Discharge Summary Admission Date: Nov 16, 2016 at 23:25 Discharge Date: Nov 19, 2016 Discharge Disposition: Home Principal Diagnosis: Left leg cellulitis Immunizations: Have You Had Influenza Vaccine: Yes History of Tetanus Vaccine?: Yes History of Pneumococcal: Yes History of Hepatitis B Vaccine: Unknown Medication Reconciliation New Medications: Cephalexin (Keflex) 500 Mg Cap 1 CAP PO BID for 7 Days, #14 CAP Nystatin (Nystop) 45 Appln/15 Gm Powd 1 APPLN EXT BID for 7 Days, #30 GM Continued Medications: Alendronate Sodium (Fosamax) 70 Mg Tab 70 MG PO WK TAKE ON WEDNESDAYS Calcium Carbonate-Vitamin D (Calcium 600 + D) 1 Tab Tab 1 TABS PO DAILY Cholecalciferol (Vitamin D-1000) 1,000 Unit Tab 1000 UNIT PO DAILY Dexamethasone (Decadron) 4 Mg Tab 4 MG PO UD, #30 TAKE THE NIGHT BEFORE AND DAY OF CHEMO Leuprolide Acetate (Lupron Depot) 22.5 Mg Kit Q 3 MONTHS Multivitamin (Multivitamin) Tab 1 TAB PO DAILY, 0 Refills Ondansetron (Ondansetron HCl) 8 Mg Tab 8 MG PO PRN, #30 Vitamin E (Vitamin E) 400 Unit Tab 400 MG PO DAILY Discharge Exam Review of Systems: Constitutional: No fever Respiratory: No shortness of breath Cardiovascular: No chest pain Abdomen: No pain Physical Exam: General Appearance: no apparent distress Respiratory/Chest: lungs clear, no respiratory distress Cardiovascular: regular rate, rhythm Extremities: + pertinent finding (bilateral legs with edema - Left > Right) Neurologic/Psychiatric: alert, oriented x 3 Skin: + pertinent finding (left leg with decreased erythema) Hospital Course 76 YO with refractory prostate Ca, admitted for UTI and left lower extremity cellulitis Left Leg Lymphedema with possible overlying cellulitis - 2/2 previous radiotherapy to abdomen - DVT ruled out. - started on vancomycin and rocephin. Rocephin later d/ranjit. ID consulted for opinion on antibiotic for discharge. Discharged home on oral keflex - Reiterated compression stocking use, lymphedema pump and Raise legs when sitting Abnormal UA - Urine cultures grew more than 3 organisms One blood culture with alpha strep - Likely contamination Neutropenia - Secondary to recent chemotherapy - Stayed afebrile through the hospital stay. Mediastinal Mass - Found on X-ray on admission - Discussed with Dr. Neal who follows patient and noted that no work-up has been done previously; follow-up CT scan ordered - CT showed 5.5 x 7.5 cm mediastinal mass; results relayed to patient - Suspect in setting of history of refractive prostate ca, this is concerning for metastatic disease; results discussed with Dr. Neal who will continue to follow this Refractory Prostate Cancer - Follow-up with Dr. Neal as outpatient Meatal Fungal Infection - Nystatin cream. Prescription given on discharge. Total Time Spent: Greater than 30 minutes (35) This includes examination of the patient, discharge planning, medication reconciliation, and communication with other providers. Discharge Instructions Please refer to the electronic Patient Visit Report (Discharge Instructions) for additional information. Additional Copies To RV. Castaneda MD; Jones Saldivar M.D.
== END 2016-11-19 12:36 | disposition home or self-care (01) | DRG 603 ==
LOC: C.EDB 19:01 → ENRESERV 23:08 → CANRESERV 23:08 → C.4E 23:25 → EDBEDREQ 23:27 → EDBEDREQSVC 23:27 → ENRESERV 23:40
PROVIDERS: ADMIT Hospitalist; ATTEND Family Medicine
DX: L03.116 Cellulitis of left lower limb (principal); N39.0 Urinary tract infection, site not specified; D70.3 Neutropenia due to infection; C61 Malignant neoplasm of prostate; B37.2 Candidiasis of skin and nail; R22.2 Localized swelling, mass and lump, trunk; I89.0 Lymphedema, not elsewhere classified; Z79.899 Other long term (current) drug therapy

== ENCOUNTER → 2017-02-06 | Outpatient (CLI) | payer OTHER, BC ==
[~2017-02-06] MED LIST changes: +DXM/4 PO; -ENZA1CAP PO; +NYSP EXT; +ONDA-63 PO
== END | disposition home or self-care (01) ==
LOC: C.MAMM 13:14
PROVIDERS: ATTEND Internal Medicine
DX: M81.0 Age-related osteoporosis without current pathological fracture (principal)

== ENCOUNTER → 2017-06-07 | Outpatient (CLI) | payer OTHER, BC ==
[~2017-06-07] MED LIST changes: -ALEN70TA2 PO; -DXM/4 PO; +PRED-301 PO; +PROC1TAB5 PO
[2017-06-07 13:44] VITALS: BP 111/69; PULSE 91; TEMP 36.9; O2SAT 97
--- NOTE | 2017-06-07 16:06 | Radiation Oncology Follow-Up ---
Radiation Oncology Follow-Up Date of Visit Jun 07, 2017. Reason For Visit One-month follow-up Radiation Completion Date pelvic 02/26/13, h&n 04/21/17 Diagnosis (1) Prostate cancer Status: Chronic Onset Date: 2002 Location: Lymph node metastasis to superior mediastinum with extension to the neck Stage: IV Permanent Comment: Status post radical prostatectomy 03/04/2002 pT3a pN1 Stout 4+4, stage IV Hormonal suppression with break in treatment and rise in PSA Initiation of Casodex Casodex held due to rising PSA Casodex then restarted Local recurrence at the prostate bed and resection of bladder neck disease Status post completion of radiation therapy 02/26/2013 received 8020 cGy Rising PSA to 24.03 October 2013 Hormonal therapy. Development of a left neck mass September 2016 Status post neck ultrasound 10/15/2016 with biopsy Metastatic carcinoma consistent with metastatic prostate carcinoma Systemic chemotherapy with Taxotere for [address] 03/06/2017 multiple conglomerated lymph nodes masses of the left neck and encasement of the left carotid, subclavian and vertebral arteries. Status post completion of radiation therapy April 21, 2017. He received 5000 cGy. Last Edited By: Ngozi Baltazar on Jun 07, 2017 15:59 History of Present Illness Mr. Latif has a known history of prostate cancer since 2002. He had an elevated PSA and abnormal digital rectal examination. He had biopsies performed and was found to have adenocarcinoma small with a Stout 4+4. His biopsy stage was T2c. He underwent a radical prostatectomy 03/04/2002 the Stout was found to be a 4+4. His stage was pT3a pN1. His PSA was undetectable until 2006. This began to rise in hormonal therapy was started with Lupron. There was a break in treatment for approximately 1 year but unfortunately the PSA began to rise again he continued on hormone malignant dehydration with Casodex. He then had a local recurrence that was biopsy- proven in the prostate bed and there was resection of the bladder neck disease. That surgery was performed in 2012. He was referred to our office and underwent radiation therapy. Radiation was completed on 02/26/2013. He received 8020 cGy. He was followed by urology and his primary care physician and unfortunately had a rise in the PSA in 2013. At that time he was referred to Dr. Saldivar in medical oncology. His PSAs have had a gradual rise. He continued on Lupron therapy. In September he noted a left neck mass and discussed this with Dr. Saldivar. He was sent for an ultrasound which revealed lymphadenopathy. An FNA was performed on 10/15/2016. This revealed metastatic carcinoma consistent with metastatic prostate carcinoma. Specimen [id number]. With these findings he was started on chemotherapy. He has been receiving Taxotere. He also had a bone scan which showed focal area of radiotracer uptake in lateral aspect of left seventh and 10th ribs corresponding to a sclerotic lesion on CT possibly metastatic disease. He had a chest x-ray 11/16/2016 due to fever and sepsis. This showed left mediastinal configuration is abnormal suspicious for mass/adenopathy. The PSA unfortunately continues to rise. The PSA 02/22/[address] was obtained of the chest abdomen and pelvis on 03/06/2017. This shows overall left inguinal lymphadenopathy. Slightly decreased. Lymphadenopathy along the left iliac chain overall appears slightly decreased, although there is a small slightly larger misael conglomerate along the left anterior pelvic sidewall. Mild lymphadenopathy along the right iliac chain is not changed. Retroperitoneal aortocaval lymphadenopathy is not significantly changed. Mildly enlarged left retrocrural lymph node is slightly larger. Prior prostatectomy. The CT of the chest showed a large mass centered at the left anterior superior mediastinum with extension into the base of the left neck is not significantly changed. A few mildly enlarged lymph nodes near the AP window has slightly increased in size. He had a CT of the neck on 03/06/2017. This showed metastatic prostate cancer with multiple conglomerated lymph node masses in the neck, supraclavicular fossa, and superior mediastinum with direct invasion of the left innominate vein, encasement of the left common carotid, subclavian, and vertebral arteries, and encasement/invasion of the left brachial plexus. He has now completed [address] Montgomery has now retired. He'll be following up with Dr. Fischer in medical oncology to discuss further therapy. Patient does complain of some shoulder discomfort. He does have upper respiratory infection symptoms these began 1 week ago. He has a cough which is productive of a white to yellow colored sputum. He denies any fever or chills. He denies wheezing or shortness of breath. He completed his course of combined radiation and chemotherapy. He tolerated this well. Radiation was completed April 21, 2017. He received 5000 cGy utilizing volumetric modulated arc therapy. Interim History He has been doing well over the past month. 2 weeks following treatment he did have dysphasia and this steadily improved and resolved. He completed the prescription of MBXC. He had some difficulty with coordination of swallowing at the end of treatment. This has resolved. He had mild hoarseness that also resolved. He has noted that the mass of the neck has steadily became smaller and smaller. He continues with medical oncology and is on a chemotherapy regimen. He receives Jevtana every 3 weeks. He has received 4 cycles and will be having a total of 6 cycles. He also receives prednisone with this treatment. He denies difficulty with the chemotherapy. He also has had a good response in his recheck PSAs. His recheck PSA on May 01, 2017 was 278.9. The next PSA was May 22, 2017 and that was 214.70. He continues on hormone suppression. Allergies Coded Allergies: No Known Allergies (Unverified , 04/24/16) Home Medications Scheduled Calcium Carbonate-Vitamin D (Calcium 600 + D), 1 TABS PO DAILY Cholecalciferol (Vitamin D-1000), 1,000 UNIT PO DAILY Leuprolide Acetate (Lupron Depot), Q 3 MONTHS Multivitamin (Multivitamin), 1 TAB PO DAILY Nystatin (Nystop), 1 APPLN EXT BID Ondansetron (Ondansetron HCl), 8 MG PO PRN Prednisone (Prednisone), 5 MG PO BID Scheduled PRN Prochlorperazine Maleate (Compazine), 1 TAB PO Q6 PRN for Nausea or Vomiting Review of Systems Gastrointestinal: Symptoms: Constipation GI Comments: Constipation w/chemo;Takes metamucil; Oral: Symptoms: Scant Saliva/Dry Mouth Respiratory: Symptoms: SOB With Exertion Other Respiratory: Throat clearing cough; Skin: Symptoms: No Problems Additional Notes: He completed a distress management report and answered "no" to all questions other than he has concerns about his medical treatment choices. Physical Exam Vital Signs Date Time Temp Pulse Resp B/P (MAP) Pulse Ox O2 Delivery O2 Flow Rate FiO2 06/07/17 13:44 36.9 91 16 111/69 97 ECOG Performance Status: 0 General Appearance: no apparent distress Eyes: normal inspection, EOMI ENT: normal ENT inspection, hearing grossly normal, pharynx normal Neck: supple, thyroid normal, + pertinent finding (There is post treatment changes palpable in the left anterior cervical lymph node chain area. There is a palpable node in the left supraclavicular area measuring approximately 1 cm in size.) Respiratory/Chest: lungs clear, no respiratory distress, no accessory muscle use Cardiovascular: regular rate, rhythm, no gallop, no murmur Neurologic/Psychiatric: no motor/sensory deficits, alert, normal mood/affect Skin: warm/dry Pain Management Patient Reports Pain: No Pain Management Plan He denies pain therefore requires no pain management. Laboratory Laboratory Results: were reviewed Laboratory Comments: Reviewed in the interim history. Pathology Pathology Results: were reviewed, and pertinent findings noted in HPI Imaging Imaging Studies: were reviewed, and pertinent findings noted in HPI Assessment & Plan Plan: He will continue regular follow-up with medical oncology and his primary care physician. He is going to complete his current regimen of chemotherapy. He has finished 4 of 6 cycles. It is likely he will then have recheck imaging. Follow-up studies per Dr. Fischer in medical oncology. We asked him to return to our office in 6 months. He may call if he has any questions or concerns in the interim. Total Time In Follow-Up I spent 20 minutes speaking to the patient in performing examination. I spent 15 minutes reviewing information and completing this note. AK Copy To RV. Castaneda MD; Moe Fischer M.D.; Becca Alfaro MD
== END | disposition home or self-care (01) ==
LOC: C.ONC 13:34
PROVIDERS: ATTEND Physician Assistant Medical
DX: Z08 Encounter for follow-up examination after completed treatment for malignant neoplasm (principal); Z92.3 Personal history of irradiation; Z85.46 Personal history of malignant neoplasm of prostate

== ENCOUNTER → 2017-09-28 | Outpatient (CLI) | payer OTHER, BC ==
[~2017-09-28] MED LIST changes: +ACET-1047 PO; -MULT-506 PO; -NYSP EXT; +NYST100010 TOP; -PRED-301 PO; -PROC1TAB5 PO; -VITA1TAB4 PO
== END | disposition home or self-care (01) ==
LOC: C.FOODA 09:40
PROVIDERS: ATTEND Internal Medicine Hematology
DX: C77.2 Secondary and unspecified malignant neoplasm of intra-abdominal lymph nodes (principal); C77.0 Secondary and unspecified malignant neoplasm of lymph nodes of head, face and neck; C61 Malignant neoplasm of prostate

== ENCOUNTER → 2017-10-18 | Outpatient (CLI) | payer OTHER, BC ==
--- NOTE | 2017-10-18 12:17 | DIAGNOSTIC IMAGING REPORT ---
CHEST 2 VIEWS ROUTINE HISTORY: 76 years-old Male J90 Pleural effusion, [id number] follow-up study in a patient with bilateral pleural effusions COMPARISON: Chest radiograph 09/04/2017 TECHNIQUE: PA and lateral views of the chest FINDINGS: Cardiac silhouette is enlarged, unchanged. Calcification of the aorta. Mild left hemidiaphragmatic elevation. Small to moderate bilateral pleural effusions appear unchanged with subsegmental bibasilar opacities suggesting compressive atelectasis. No pneumothorax or overt pulmonary edema. Bones of the chest appear intact. IMPRESSION: Stable size of the small to moderate bilateral pleural effusions with subsegmental bibasilar opacities suggesting compressive atelectasis. The above report was generated using voice recognition software. It may contain grammatical, syntax or spelling errors. Electronically signed by: Aleksandr Irvin M.D. 10/18/2017 12:16 PM Dictated Date/Time: 10/18/2017 12:15 PM
== END | disposition home or self-care (01) ==
LOC: C.RAD1850 11:37
PROVIDERS: ATTEND Surgery
DX: J90 Pleural effusion, not elsewhere classified (principal)

== ENCOUNTER → 2017-10-19 | Outpatient (CLI) | payer OTHER, BC ==
--- NOTE | 2017-10-19 14:01 | DIAGNOSTIC IMAGING REPORT ---
(CHEST) THORAX WITHOUT CLINICAL HISTORY: 76 years-old Male presenting with PROSTATE CA,SOB. TECHNIQUE: Multidetector CT imaging of the chest was performed without the use of intravenous contrast. IV contrast: None. A dose lowering technique was used consistent with the principles of ALARA (as low as reasonably achievable). COMPARISON: 08/11/2017. CT DOSE (mGy.cm): The estimated cumulative dose is 308.79 mGycm. FINDINGS: [employer] topogram: Left greater than right pleural effusions and basilar atelectasis. On soft tissue windows, normal thyroid. Bilateral gynecomastia, right greater than left. Redemonstration of the bilateral supraclavicular lymphadenopathy including the conglomerate lymph node mass at the left supraclavicular fossa. Interval decrease in size of the anterior mediastinal mass, consistent with a lymph node conglomerate. No this is suboptimally evaluated without intravenous contrast, the conglomerate mass now measures 5.1 x 3.5 cm, previously 6.6 x 4.1 cm. Subcarinal, pretracheal, right paratracheal lymphadenopathy worsened from prior. Atherosclerosis of the aorta. Assessment for persistent thrombus within the left brachiocephalic vein cannot be made in the absence of intravenous contrast. Normal heart size. Coronary artery calcification. Moderate bilateral pleural effusions slightly decreased from the prior exam. Suggestion of left hydronephrosis, new from prior. Previously suggested right hydronephrosis not included within the [id number]. Heterogeneity of liver density is worsened from prior. This now involves segments 5 and 6 and potentially segment 7. This would be better evaluated with intravenous contrast. Persistent upper abdominal lymphadenopathy. On lung windows, dependent consolidation volume loss in the lower lobes. Additionally, there is new tree-in-bud and dense peribronchovascular consolidation in the right lower lobe. Subsegmental bronchi are partially occluded. Interval decrease in the focal groundglass peripheral opacity in the anterior/apical right upper lobe (series 4 image 60). Additional bandlike opacities in the lingula and right middle lobe likely atelectasis or scarring. Central airways patent. No pneumothorax. On bone windows, sclerosis of L1 may have increased though the vertebral bodies only partially visualized. Sclerosis of C7 is unchanged. Focal sclerotic lesion in the right scapula is unchanged, possibly bone island. IMPRESSION: 1. Mixed response with interval decreased size of the anterior mediastinal lymph node conglomerate though significantly increased size of other sites of mediastinal lymphadenopathy. Grossly stable appearance of bilateral supraclavicular and upper abdominal lymphadenopathy though evaluation is limited by lack of intravenous contrast. 2. Findings suspicious for worsening hepatic metastatic disease. Again, evaluation limited bilateral intravenous contrast. 3. Slight interval decrease in moderate bilateral pleural effusions. 4. Interval development of tree-in-bud and peribronchovascular consolidation in the right lower lobe. An infectious bronchiolitis, aspiration, or metastatic disease to be considered. 5. Interval decrease in right upper lobe groundglass focal opacity, most compatible with resolving infectious or inflammatory etiology. 6. Persistent osseous metastatic disease. Electronically signed by: Manny Barry M.D. 10/19/2017 1:59 PM Dictated Date/Time: 10/19/2017 1:48 PM
== END | disposition home or self-care (01) ==
LOC: C.CTS 13:08
PROVIDERS: ATTEND Surgery
DX: C61 Malignant neoplasm of prostate (principal); J90 Pleural effusion, not elsewhere classified; R06.02 Shortness of breath; R59.1 Generalized enlarged lymph nodes; R91.8 Other nonspecific abnormal finding of lung field; C78.7 Secondary malignant neoplasm of liver and intrahepatic bile duct; C79.51 Secondary malignant neoplasm of bone